=== PATIENT | male | born 1940 | race Caucasian/White ===

== ENCOUNTER → 2017-07-13 | Outpatient (CLI) | payer MEDICARE ==
--- NOTE | 2017-07-13 09:52 | US ---
EXAMINATION TYPE: [place] medicare screen for AAA DATE OF EXAM: 07/13/2017 COMPARISON: CT abdomen 02-01-2015. CLINICAL HISTORY: I70.0 Atherosclerosis of aorta. EXAM MEASUREMENTS: Abdominal Aorta: Proximal: 1.7 x 1.9cm Mid: 1.5 x 1.6cm Distal: 1.7 x 1.9cm Bifurcation: RT: 1.2 x 1.2cm LT: 1.1 x 1.2cm No evidence of AAA at this time. Calcifications noted IMPRESSION: No aneurysmal change to abdominal aorta.
== END | disposition home or self-care (01) ==
LOC: RADUSWWP 09:14
PROVIDERS: ATTEND Family Medicine
DX: I70.0 Atherosclerosis of aorta (principal)
CPT/HCPCS: 93979

== ENCOUNTER → 2017-12-03 | Outpatient (CLI) | payer MEDICARE ==
[2017-12-03 09:31] LABS: Blood Urea Nitrogen 21 mg/dL (9-20)
--- NOTE | 2017-12-03 10:34 | CT ---
EXAMINATION TYPE: CT soft tissue neck w con DATE OF EXAM: 12/03/2017 10:13 AM COMPARISON: None HISTORY: Right sided cheek swelling marked by BB CT DLP: 567 mGycm Automated exposure control for dose reduction was used. CONTRAST: CT scan of the neck is performed following with IV Contrast, patient injected with 100 mL of Isovue 3 00. Axial images are obtained, coronal and sagittal reformatted images are reviewed. FINDINGS: Extensive dental artifact limits assessment of the soft tissues of the neck. Exam is limite d. Airway: No gross abnormality seen. Parotid/submandibular glands: No gross abnormality seen. Carotid/Vascular Structures: Vascular structures demonstrate enhancement with no significant atherosc lerotic changes. Osseous Structures: Multilevel hypertrophic and degenerative disc disease noted with posterior spondy losis. Suspect multilevel foraminal encroachment. Other: There is a 1.5 cm right thyroid nodule. There is a mass overlying the right facial structures measuring 2 x 2 centimeters and has a soft tissue or solid appearance. There is changes of chronic sinusitis. Orbits have a normal appearance. Intracranial structures demonstrate a normal appearance. There is so me asymmetry to the base of the tongue on the left which may be positional should be correlated clini suzy. Focal cords have a normal appearance. Oropharynx and nasopharynx are symmetric. No pathologic adenopathy. Slight arthropathy of the sternoclavicular joints noted. Arthropathy of the AC joints noted. IMPRESSION: 1. Is a solid-appearing mass overlying the subcutaneous tissues of the right facial structures corres ponding the palpable abnormality. Consider tissue diagnosis. 2. Asymmetry of the base of the tongue on the left. Correlate clinically with direct visualization as clinically warranted. 3. There is a 1.5 cm right thyroid nodule.
== END | disposition home or self-care (01) ==
LOC: RADCTMAIN 07:42
PROVIDERS: ATTEND Otolaryngology
DX: E04.1 Nontoxic single thyroid nodule (principal)
CPT/HCPCS: 82565; 84520; 70491; 36415; Q9967

== ENCOUNTER → 2019-03-06 | Outpatient (CLI) | payer MEDICARE ==
--- NOTE | 2019-03-06 09:33 | US ---
EXAMINATION TYPE: US gallbladder DATE OF EXAM: 03/06/2019 COMPARISON: CT 02/01/15 CLINICAL HISTORY: K2080 GALLSTONES. Patient c/o bilateral shoulder pain. History of Melanoma. EXAM MEASUREMENTS: Liver Length: 15.2 cm Gallbladder Wall: 0.1 cm CBD: 0.2 cm Right Kidney: 12.6 x 6.0 x 5.9 cm Pancreas: ? heterogeneous texture. Liver: Multiple liver cysts throughout entire liver. Largest = 7.6 x 6.6 x 6.4 cm Gallbladder: tiny polyps anteriorly and by neck. No stones seen. Evidence for sonographic Templeton's sign: No CBD: wnl Right Kidney: With upper pole cyst =1.6 x 1.3 x 0.8 cm IMPRESSION: 1. Fatty liver multiple hepatic cysts. 2. Suspect small gallbladder polyps.
== END | disposition home or self-care (01) ==
LOC: RADUSWWP 08:49
PROVIDERS: ATTEND Surgery Plastic and Reconstructive Surgery
DX: K76.0 Fatty (change of) liver, not elsewhere classified (principal); K76.89 Other specified diseases of liver; K80.20 Calculus of gallbladder without cholecystitis without obstruction
CPT/HCPCS: 76705

== ENCOUNTER 2019-03-13 11:32 | Day surgery (SDC) | payer MEDICARE ==
[2019-03-11 10:48] VITALS: BMI 22.9
[~2019-03-13 11:32] MED LIST: LACTATED RINGERS 1,000 ML IV SCH; LIDOCAINE 1% 20 ML VIAL (10MG/ML) FOR IV START INTRADERMA PRN
--- NOTE | 2019-03-13 11:58 | P.GSHP ---
History of Present Illness H&P Date: 03/13/19 CHIEF COMPLAINT: Colon screen HISTORY OF PRESENT ILLNESS: The patient is a 78-year-old male who presents for colon screen. Lower endoscopy was offered for further evaluation and management. PAST MEDICAL HISTORY: Please see list. PAST SURGICAL HISTORY: Please see list. MEDICATIONS: Please see list. ALLERGIES: Please see list. SOCIAL HISTORY: No illicit drug use FAMILY HISTORY: No reports of Crohn disease or ulcerative colitis. REVIEW OF ORGAN SYSTEMS: CONSTITUTIONAL: No reports of fevers or chills. PHYSICAL EXAM: VITAL SIGNS: Stable GENERAL: Well-developed pleasant in no acute distress. HEENT: No scleral icterus. Extraocular movements grossly intact. Moist buccal mucosa. NECK: Supple without lymphadenopathy. CHEST: Unlabored respirations. Equal bilateral excursions. CARDIOVASCULAR: Regular rate and rhythm. Distal 2+ pulses. ABDOMEN: Soft, nontender, nondistended. MUSCULOSKELETAL: No clubbing, cyanosis, or edema. ASSESSMENT: 1. Colon screen. PLAN: 1. Recommend proceeding with a lower endoscopy Past Medical History Past Medical History: Cancer, Prostate Disorder, Skin Disorder Additional Past Medical History / Comment(s): Enlarged prostate, episodes of tachycardia, Countyline's Skin Disease, melanoma History of Any Multi-Drug Resistant Organisms: None Reported Past Surgical History: Ear Surgery, Orthopedic Surgery, Prostate Surgery, T onsillectomy Additional Past Surgical History / Comment(s): foot surgery for torn achilles tendon, vasectomy, plastic surgery on left ear,TURP, surgery on a foot for cyst, stella cataracts Past Anesthesia/Blood Transfusion Reactions: No Reported Reaction Additional Past Anesthesia/Blood Transfusion Reaction / Comment(s): Never has had blood transfusion Smoking Status: Former smoker - Past Family History Father Family Medical History: Cancer Additional Family Medical History / Comment(s): colon Mother Family Medical History: Hypertension, Liver Disease Medications and Allergies Home Medications Medication Instructions Recorded Confirmed Type Finasteride [Proscar] 5 mg PO DAILY 06/20/14 03/11/19 History diphenhydrAMINE [Benadryl] 50 mg PO DAILY PRN 03/05/15 03/11/19 History Acetaminophen [Tylenol Extra 1,000 mg PO HS 03/11/19 03/11/19 History Strength] Amlactin Lotion 1 applicate TOPICAL DAILY 03/11/19 03/11/19 History Calcipotriene [Dovonex] 1 applic TOPICAL DIRECTED PRN 03/11/19 03/11/19 History Halobetasol Propionate 1 applic TOPICAL DAILY PRN 03/11/19 03/11/19 History Tolterodine ER [Detrol LA] 4 mg PO 212903/11/19 03/11/19 History Triamcinolone 0.025% Cream 1 applic TOPICAL BID PRN 03/11/19 03/11/19 History [Kenalog 0.025% Cream] Triamcinolone 0.1% Cream [Kenalog 1 applicatio TOPICAL BID PRN 03/11/19 03/11/19 History 0.1% Cream] Allergies Allergy/AdvReac Type Severity Reaction Status Date / Time adhesive AdvReac Itching Verified 03/11/19 10:29 And Skin Irritation
[2019-03-13 12:33] VITALS: RESP 16; TEMP 99.1
[2019-03-13] MEDS ORDERED: PROPOFOL 10 MG/ML 20 ML VIAL IV ONE (14:15)
[2019-03-13] MEDS ORDERED: LIDOCAINE 1% INJ 10MG/ML (20 ML MDV) ONE (14:15)
--- NOTE | 2019-03-13 14:45 | P.PCN ---
Date of Procedure: 03/13/19 Description of Procedure: PREOPERATIVE DIAGNOSIS: Family history of colon cancer Colonoscopy screening. POSTOPERATIVE DIAGNOSIS: Family history of colon cancer Colonoscopy screening. Diverticulosis, scattered. Chronic constipation with poor prep OPERATION: Colonoscopy to the ascending colon SURGEON: Patrizia Morris MD. ANESTHESIA: MAC. INDICATIONS: The patient is a 78-year-old male who presents for colonoscopy screening. Last colonoscopy over 5 years ago.Benefits and risks were described and informed consent was obtained. DESCRIPTION OF PROCEDURE: The patient had undergone Gatorade, MiraLAX and Dulcolax prep. He had been brought into the operating room and laid in the left lateral decubitus position. After adequate intravenous sedation, the rectum was examined with 2% lidocaine jelly. The prostatic fossa was unremarkable. No external hemorrhoids were encountered. The rectal tone was within normal limits. No lesions were palpated in the rectal vault. An Olympus colonoscope was advanced to the ascending colon. The prep was poor limiting views of small polyps. Scattered diverticulosis was encountered. No evidence of focal colitis was found. Retroflexion of the scope demonstrated grade 1 internal hemorrhoids without active bleeding or inflammation. The colon was desufflated. The patient had tolerated the procedure well. Withdrawal time was over 6 minutes. FINDINGS: Aronchick preparation quality scale 4 (1-5) Internal hemorrhoids, grade 1 No external prolapsed hemorrhoids. No arteriovenous malformations. No large adenomatous polyps. No focal colitis. Sigmoid diverticulosis RECOMMENDATIONS: Lower endoscopy in 5 years, 2023 Plan - Discharge Summary New Discharge Prescriptions: No Action Finasteride [Proscar] 5 mg PO DAILY diphenhydrAMINE [Benadryl] 50 mg PO DAILY PRN PRN Reason: Itching Tolterodine ER [Detrol LA] 4 mg PO 2129 Triamcinolone 0.1% Cream [Kenalog 0.1% Cream] 1 applicatio TOPICAL BID PRN PRN Reason: Skin Irritation Triamcinolone 0.025% Cream [Kenalog 0.025% Cream] 1 applic TOPICAL BID PRN PRN Reason: Skin Irritation Calcipotriene [Dovonex] 1 applic TOPICAL DIRECTED PRN PRN Reason: skin breakdown Halobetasol Propionate 1 applic TOPICAL DAILY PRN PRN Reason: Itching Amlactin Lotion 1 applicate TOPICAL DAILY Acetaminophen [Tylenol Extra Strength] 1,000 mg PO HS Discharge Medication List Finasteride [Proscar] 5 mg PO DAILY 06/20/14 [History] diphenhydrAMINE [Benadryl] 50 mg PO DAILY PRN 03/05/15 [History] Acetaminophen [Tylenol Extra Strength] 1,000 mg PO HS 03/11/19 [History] Amlactin Lotion 1 applicate TOPICAL DAILY 03/11/19 [History] Calcipotriene [Dovonex] 1 applic TOPICAL DIRECTED PRN 03/11/19 [History] Halobetasol Propionate 1 applic TOPICAL DAILY PRN 03/11/19 [History] Tolterodine ER [Detrol LA] 4 mg PO 0 03/11/19 [History] Triamcinolone 0.025% Cream [Kenalog 0.025% Cream] 1 applic TOPICAL BID PRN 03/11/19 [History] Triamcinolone 0.1% Cream [Kenalog 0.1% Cream] 1 applicatio TOPICAL BID PRN 03/11/19 [History] Follow up Appointment(s)/Referral(s): Patrizia Morris MD [STAFF PHYSICIAN] - 03/27/19 Patient Instructions/Handouts: Diverticulosis Diet (GEN), Diverticulosis (DC) Activity/Diet/Wound Care/Special Instructions: Recommend Cologaurd or Colonoscopy in 5 years, 2023 Discharge Disposition: HOME SELF-CARE
[2019-03-13 15:01] VITALS: BP 152/83; PULSE 79
== END 2019-03-13 15:14 | disposition home or self-care (01) ==
LOC: ORWHC2ENDO 11:32
PROVIDERS: ATTEND Surgery Plastic and Reconstructive Surgery
DX: Z12.11 Encounter for screening for malignant neoplasm of colon (principal); K57.30 Diverticulosis of large intestine without perforation or abscess without bleeding; K64.0 First degree hemorrhoids; Z80.0 Family history of malignant neoplasm of digestive organs; Z86.010 Personal history of colon polyps; N40.0 Benign prostatic hyperplasia without lower urinary tract symptoms; R00.0 Tachycardia, unspecified; L11.1 Transient acantholytic dermatosis [Grover]; Z98.52 Vasectomy status; Z85.820 Personal history of malignant melanoma of skin; Z98.42 Cataract extraction status, left eye; Z98.41 Cataract extraction status, right eye; Z87.891 Personal history of nicotine dependence; Z82.49 Family history of ischemic heart disease and other diseases of the circulatory system; Z83.79 Family history of other diseases of the digestive system; Z79.52 Long term (current) use of systemic steroids; Z79.899 Other long term (current) drug therapy; Z91.09 Other allergy status, other than to drugs and biological substances
CPT/HCPCS: J2001; J2704; G0105

== ENCOUNTER → 2019-09-26 | Outpatient (CLI) | payer MEDICARE ==
--- NOTE | 2019-09-27 12:04 | XR ---
EXAMINATION TYPE: XR chest 2V DATE OF EXAM: 09/26/2019 COMPARISON: 01/23/2015 INDICATION: Cough TECHNIQUE: Frontal and lateral views of the chest are obtained. FINDINGS: The heart size is normal. The pulmonary vasculature is normal. The lungs are clear. IMPRESSION: 1. No acute pulmonary process.
== END | disposition home or self-care (01) ==
LOC: RADXRMAIN 15:57
PROVIDERS: ATTEND Family Medicine
DX: J45.909 Unspecified asthma, uncomplicated (principal); R05 Cough
CPT/HCPCS: 71046

== ENCOUNTER → 2019-09-30 | Outpatient (CLI) | payer MEDICARE | END | disposition home or self-care (01) | LOC: LABWHC1 10:10 | PROVIDERS: ATTEND Family Medicine | DX: Z20.9 Contact with and (suspected) exposure to unspecified communicable disease (principal) ==

== ENCOUNTER 2019-10-21 13:55 | Inpatient (IN) | payer MEDICARE ==
--- NOTE | 2019-10-21 14:31 | ED ---
Fever HPI - General Source: patient, family, RN notes reviewed Mode of arrival: wheelchair Limitations: no limitations - History of Present Illness MD Complaint: fever, other <Kenney Nicholas - Last Filed: 10/21/19 14:52> <James Caputo - Last Filed: 10/21/19 17:14> - General Chief Complaint: Fever Stated Complaint: Dizzy,Fever,Cough Time Seen by Provider: 10/21/19 14:09 - History of Present Illness Initial Comments: This is a 79-year-old male with a history of malignant melanoma the face who is currently undergoing immunotherapy treatment for this who presents from his doctor's office with complaints of 6 weeks of persistent cough any fever 101.7 this morning. He's had persistent cough for 6 weeks he is on chemotherapy for melanoma but could not get his chemo yesterday because of a fever. He denies any coughing up phlegm he states she's had almost constant rhinorrhea sometimes is years ago ingested he is hard of hearing and does wear hearing is. No dysuria no hematuria. No overt chest pain no nausea no vomiting. He apparently was seen by his doctor this morning sent here for further evaluation. (Kenney Nicholas) - Related Data Home Medications Medication Instructions Recorded Confirmed Finasteride [Proscar] 5 mg PO DAILY 06/20/14 03/13/19 diphenhydrAMINE [Benadryl] 50 mg PO DAILY PRN 03/05/15 03/13/19 Acetaminophen [Tylenol Extra 1,000 mg PO HS 03/11/19 03/13/19 Strength] Amlactin Lotion 1 applicate TOPICAL DAILY 03/11/19 03/13/19 Calcipotriene [Dovonex] 1 applic TOPICAL DIRECTED PRN 03/11/19 03/13/19 Halobetasol Propionate [Ultravate] 1 applic TOPICAL DAILY PRN 03/11/19 03/13/19 Tolterodine ER [Detrol LA] 4 mg PO 212903/11/19 03/13/19 Triamcinolone 0.025% Cream 1 applic TOPICAL BID PRN 03/11/19 03/13/19 [Kenalog 0.025% Cream] Triamcinolone 0.1% Cream [Kenalog 1 applicatio TOPICAL BID PRN 03/11/19 03/13/19 0.1% Cream] Allergies Allergy/AdvReac Type Severity Reaction Status Date / Time adhesive AdvReac Itching Verified 10/21/19 14:08 And Skin Irritation Review of Systems ROS Other: All systems not noted in ROS Statement are negative. <Kenney Nicholas - Last Filed: 10/21/19 14:52> ROS Other: All systems not noted in ROS Statement are negative. <HarshalJames D - Last Filed: 10/21/19 17:14> ROS Statement: Those systems with pertinent positive or pertinent negative responses have been documented in the HPI. Past Medical History Past Medical History: Cancer, Prostate Disorder, Skin Disorder Additional Past Medical History / Comment(s): Enlarged prostate,tachycardia,Joaquin's Skin Disease History of Any Multi-Drug Resistant Organisms: None Reported Past Surgical History: Ear Surgery, Orthopedic Surgery Additional Past Surgical History / Comment(s): foot sx r/t torn achilles,vasectomy Past Anesthesia/Blood Transfusion Reactions: No Reported Reaction Additional Past Anesthesia/Blood Transfusion Reaction / Comment(s): Never has had blood transfusion Past Psychological History: No Psychological Hx Reported Smoking Status: Never smoker Past Alcohol Use History: Rare Past Drug Use History: None Reported - Past Family History Father Family Medical History: Cancer Additional Family Medical History / Comment(s): colon Mother Family Medical History: Hypertension, Liver Disease <Kenney Nicholas - Last Filed: 10/21/19 14:52> General Exam Limitations: no limitations General appearance: alert, in no apparent distress Head exam: Present: atraumatic, normocephalic, normal inspection Eye exam: Present: normal appearance, PERRL, EOMI. Absent: scleral icterus, conjunctival injection, periorbital swelling ENT exam: Present: mucous membranes dry, other (Boggy nasal mucosa and some dullness to the left TM) Neck exam: Present: normal inspection. Absent: tenderness, meningismus, lymp hadenopathy Respiratory exam: Present: decreased breath sounds, other (Left lower lobe crepitus). Absent: respiratory distress, wheezes, rales, stridor Cardiovascular Exam: Present: regular rate, normal rhythm, normal heart sounds. Absent: systolic murmur, diastolic murmur, rubs, gallop, clicks GI/Abdominal exam: Present: soft, normal bowel sounds. Absent: distended, tenderness, guarding, rebound, rigid Extremities exam: Present: normal inspection, full ROM, normal capillary refill. Absent: tenderness, pedal edema, joint swelling, calf tenderness Back exam: Present: normal inspection Neurological exam: Present: alert, oriented X3, CN II-XII intact Psychiatric exam: Present: normal affect, normal mood Skin exam: Present: warm, dry, intact, normal color. Absent: rash <Kenney Nicholas - Last Filed: 10/21/19 14:52> - General Exam Comments Initial Comments: This is a well-developed asthenic appearing male who is awake alert oriented 3 (Kenney Nicholas) Course <Kenney Nicholas - Last Filed: 10/21/19 14:52> Vital Signs 10/21/19 14:02 Temperature 99.7 F H Pulse Rate 88 Respiratory 20 Rate Blood Pressure 95/52 O2 Sat by Pulse 95 Oximetry - Reevaluation(s) Reevaluation #1: 10/21/19 14:52 The patient's care will be endorsed to Dr. Caputo at shift change. ( Kenney Nicholas) Medical Decision Making - EKG Data -: EKG Interpreted by Me EKG shows normal: sinus rhythm (Sinus rhythm rate 89. Interval 150 to QRS duration 154 daily since QTC 42/49) with block pattern) <Kenney Nicholas - Last Filed: 10/21/19 14:52> - Lab Data Result diagrams: 10/21/19 15:00 10/21/19 15:00 <James Caputo - Last Filed: 10/21/19 17:14> - Medical Decision Making Patient is signed out to me by previous shift physician Dr. Nicholas. Briefly, patient is a 79-year-old male with past medical history melanoma, prostate disease. He reports that he is on some sort of clinical trial immunotherapy medication. Patient presented to the emergency Department with fever cough and dizziness. Patient currently undergoing chemotherapy. Vital signs upon arrival showed temperature 99.7. He does have blood pressure 95/52. Parents was to follow-up with pending labs and imaging studies. CBC is unremarkable. Coag panel is negative. D-dimer is negative compared to age adjusted level. Hyponatremia 131. He does have a troponin 0.066. Urinalysis is positive for 1+ ketones and 7 white blood cells. Chest x-ray shows no acute processes. At this point there is no obvious source of fever. Clinical presentation consistent with systemic inflammatory response syndrome. Patient treated with broad- spectrum antibiotics. Given patient's comorbidities patient benefit from inpatient admission for medical monitoring. Case was discussed with Dr. Dias who is willing to accept patients care on behalf of [facility] hospitalist group. Patient be admitted with consultation to infectious disease. (James Caputo) - Lab Data Lab Results 10/21/19 10/21/19 10/21/19 Range/Units 15:00 15:00 15:00 WBC 10.6 (3.8-10.6) k/uL RBC 4.25 L (4.30-5.90) m/uL Hgb 13.5 (13.0-17.5) gm/dL Hct 41.6 (39.0-53.0) % MCV 98.0 (80.0-100.0) fL MCH 31.7 (25.0-35.0) pg MCHC 32.4 (31.0-37.0) g/dL RDW 12.1 (11.5-15.5) % Plt Count 204 (150-450) k/uL Neutrophils % 90 % Lymphocytes % 4 % Monocytes % 3 % Eosinophils % 1 % Basophils % 0 % Neutrophils # 9.6 H (1.3-7.7) k/uL Lymphocytes # 0.4 L (1.0-4.8) k/uL Monocytes # 0.4 (0-1.0) k/uL Eosinophils # 0.1 (0-0.7) k/uL Basophils # 0.0 (0-0.2) k/uL PT 11.8 (9.0-12.0) sec INR 1.2 H (<1.2) APTT 27.1 (22.0-30.0) sec D-Dimer 0.69 H (<0.60) mg/L FEU Sodium 131 L (137-145) mmol/L Potassium 4.2 (3.5-5.1) mmol/L Chloride 98 (98-107) mmol/L Carbon Dioxide 26 (22-30) mmol/L Anion Gap 7 mmol/L BUN 21 H (9-20) mg/dL Creatinine 0.69 (0.66-1.25) mg/dL Est GFR (CKD-EPI)AfAm >90 (>60 ml/min/1.73 sqM) Est GFR (CKD-EPI)NonAf >90 (>60 ml/min/1.73 sqM) Glucose 161 H (74-99) mg/dL Plasma Lactic Acid Otoniel (0.7-2.0) mmol/L Calcium 8.7 (8.4-10.2) mg/dL Magnesium 1.9 (1.6-2.3) mg/dL Total Bilirubin 0.5 (0.2-1.3) mg/dL AST 22 (17-59) U/L ALT 16 (4-49) U/L Alkaline Phosphatase 72 (38-126) U/L Creatine Kinase 36 L (55-170) U/L Troponin I (0.000-0.034) ng/mL NT-Pro-B Natriuret Pep pg/mL Total Protein 6.2 L (6.3-8.2) g/dL Albumin 3.3 L (3.5-5.0) g/dL Urine Color Urine Appearance (Clear) Urine pH (5.0-8.0) Ur Specific [place] (1.001-1.035) Urine Protein (Negative) Urine Glucose (UA) (Negative) Urine Ketones (Negative) Urine Blood (Negative) Urine Nitrite (Negative) Urine Bilirubin (Negative) Urine Urobilinogen (<2.0) mg/dL Ur Leukocyte Esterase (Negative) Urine RBC (0-5) /hpf Urine WBC (0-5) /hpf Ur Squamous Epith Cells (0-4) /hpf Hyaline Casts (0-2) /lpf Urine Mucus (None) /hpf 10/21/19 10/21/19 10/21/19 Range/Units 15:00 15:00 15:00 WBC (3.8-10.6) k/uL RBC (4.30-5.90) m/uL Hgb (13.0-17.5) gm/dL Hct (39.0-53.0) % MCV (80.0-100.0) fL MCH (25.0-35.0) pg MCHC (31.0-37.0) g/dL RDW (11.5-15.5) % Plt Count (150-450) k/uL Neutrophils % % Lymphocytes % % Monocytes % % Eosinophils % % Basophils % % Neutrophils # (1.3-7.7) k/uL Lymphocytes # (1.0-4.8) k/uL Monocytes # (0-1.0) k/uL Eosinophils # (0-0.7) k/uL Basophils # (0-0.2) k/uL PT (9.0-12.0) sec INR (<1.2) APTT (22.0-30.0) sec D-Dimer (<0.60) mg/L FEU Sodium (137-145) mmol/L Potassium (3.5-5.1) mmol/L Chloride (98-107) mmol/L Carbon Dioxide (22-30) mmol/L Anion Gap mmol/L BUN (9-20) mg/dL Creatinine (0.66-1.25) mg/dL Est GFR (CKD-EPI)AfAm (>60 ml/min/1.73 sqM) Est GFR (CKD-EPI)NonAf (>60 ml/min/1.73 sqM) Glucose (74-99) mg/dL Plasma Lactic Acid Otoniel 1.1 (0.7-2.0) mmol/L Calcium (8.4-10.2) mg/dL Magnesium (1.6-2.3) mg/dL Total Bilirubin (0.2-1.3) mg/dL AST (17-59) U/L ALT (4-49) U/L Alkaline Phosphatase (38-126) U/L Creatine Kinase (55-170) U/L Troponin I 0.066 H* (0.000-0.034) ng/mL NT-Pro-B Natriuret Pep 2660 pg/mL Total Protein (6.3-8.2) g/dL Albumin (3.5-5.0) g/dL Urine Color Urine Appearance (Clear) Urine pH (5.0-8.0) Ur Specific [place] (1.001-1.035) Urine Protein (Negative) Urine Glucose (UA) (Negative) Urine Ketones (Negative) Urine Blood (Negative) Urine Nitrite (Negative) Urine Bilirubin (Negative) Urine Urobilinogen (<2.0) mg/dL Ur Leukocyte Esterase (Negative) Urine RBC (0-5) /hpf Urine WBC (0-5) /hpf Ur Squamous Epith Cells (0-4) /hpf Hyaline Casts (0-2) /lpf Urine Mucus (None) /hpf 10/21/19 Range/Units 15:35 WBC (3.8-10.6) k/uL RBC (4.30-5.90) m/uL Hgb (13.0-17.5) gm/dL Hct (39.0-53.0) % MCV (80.0-100.0) fL MCH (25.0-35.0) pg MCHC (31.0-37.0) g/dL RDW (11.5-15.5) % Plt Count (150-450) k/uL Neutrophils % % Lymphocytes % % Monocytes % % Eosinophils % % Basophils % % Neutrophils # (1.3-7.7) k/uL Lymphocytes # (1.0-4.8) k/uL Monocytes # (0-1.0) k/uL Eosinophils # (0-0.7) k/uL Basophils # (0-0.2) k/uL PT (9.0-12.0) sec INR (<1.2) APTT (22.0-30.0) sec D-Dimer (<0.60) mg/L FEU Sodium (137-145) mmol/L Potassium (3.5-5.1) mmol/L Chloride (98-107) mmol/L Carbon Dioxide (22-30) mmol/L Anion Gap mmol/L BUN (9-20) mg/dL Creatinine (0.66-1.25) mg/dL Est GFR (CKD-EPI)AfAm (>60 ml/min/1.73 sqM) Est GFR (CKD-EPI)NonAf (>60 ml/min/1.73 sqM) Glucose (74-99) mg/dL Plasma Lactic Acid Otoniel (0.7-2.0) mmol/L Calcium (8.4-10.2) mg/dL Magnesium (1.6-2.3) mg/dL Total Bilirubin (0.2-1.3) mg/dL AST (17-59) U/L ALT (4-49) U/L Alkaline Phosphatase (38-126) U/L Creatine Kinase (55-170) U/L Troponin I (0.000-0.034) ng/mL NT-Pro-B Natriuret Pep pg/mL Total Protein (6.3-8.2) g/dL Albumin (3.5-5.0) g/dL Urine Color Yellow Urine Appearance Clear (Clear) Urine pH 6.0 (5.0-8.0) Ur Specific [place] 1.021 (1.001-1.035) Urine Protein Trace H (Negative) Urine Glucose (UA) Negative (Negative) Urine Ketones 1+ H (Negative) Urine Blood Small H (Negative) Urine Nitrite Negative (Negative) Urine Bilirubin Negative (Negative) Urine Urobilinogen <2.0 (<2.0) mg/dL Ur Leukocyte Esterase Negative (Negative) Urine RBC 2 (0-5) /hpf Urine WBC 7 H (0-5) /hpf Ur Squamous Epith Cells <1 (0-4) /hpf Hyaline Casts 5 H (0-2) /lpf Urine Mucus Many H (None) /hpf Disposition <Kenney Nicholas - Last Filed: 10/21/19 14:52> Decision Time: 17:14 <James Caputo - Last Filed: 10/21/19 17:14> Clinical Impression: SIRS (systemic inflammatory response syndrome) Disposition: ADMITTED IP TO THIS HOSP Condition: Fair Referrals: Sohan Jorge MD [Primary Care Provider] - 1-2 days
[2019-10-21 15:12] LABS: Basophils % (A) 0 %; Eosinophils # (A) 0.1 k/uL (0-0.7); Eosinophils % (A) 1 %; HCT 41.6 % (39.0-53.0); HGB 13.5 gm/dL (13.0-17.5); Lymphocytes # (A) 0.4 k/uL (1.0-4.8); Lymphocytes % (A) 4 %; MCH 31.7 pg (25.0-35.0); MCHC 32.4 g/dL (31.0-37.0); Mean Platelet Volume 7.8; Monocytes # (A) 0.4 k/uL (0-1.0); Monocytes % (A) 3 %; Neutrophils # (A) 9.6 k/uL (1.3-7.7); Neutrophils % (A) 90 %; Platelet Count 204 k/uL (150-450); RBC 4.25 m/uL (4.30-5.90); RDW 12.1 % (11.5-15.5); WBC 10.6 k/uL (3.8-10.6)
[2019-10-21 15:24] LABS: ALT 16 U/L (4-49); AST 22 U/L (17-59); African American GFR (CKD) >90 (>60 ml/min/1.73 sqM); Albumin 3.3 g/dL (3.5-5.0); Alkaline Phosphatase 72 U/L (38-126); Anion Gap 7 mmol/L; Blood Urea Nitrogen 21 mg/dL (9-20); Calcium 8.7 mg/dL (8.4-10.2); Carbon Dioxide 26 mmol/L (22-30); Chloride 98 mmol/L (98-107); Creatine Kinase 36 U/L (55-170); Glucose 161 mg/dL (74-99); Magnesium 1.9 mg/dL (1.6-2.3); Non-African American GFR(CKD) >90 (>60 ml/min/1.73 sqM); Potassium 4.2 mmol/L (3.5-5.1); Sodium 131 mmol/L (137-145); Total Bilirubin 0.5 mg/dL (0.2-1.3); Total Protein 6.2 g/dL (6.3-8.2)
--- NOTE | 2019-10-21 15:30 | XR ---
EXAMINATION TYPE: XR chest 2V DATE OF EXAM: 10/21/2019 COMPARISON: 09/26/19 HISTORY: Shortness of breath TECHNIQUE: Frontal and lateral views of the chest are obtained. FINDINGS: Scattered senescent parenchymal changes noted. Hyperinflation compatible with COPD. No evidence for infiltrate. No evidence for atelectasis. Heart size is stable. Mediastinal structures are stable and grossly unremarkable. No evidence for hilar prominence. Degenerative changes dorsal spine. IMPRESSION: 1. No evidence for acute pulmonary disease.
[2019-10-21 15:35] LABS: INR 1.2 (<1.2); Partial Thromboplastin Time 27.1 sec (22.0-30.0); Prothrombin Time 11.8 sec (9.0-12.0)
[2019-10-21 15:47] LABS: D-Dimer 0.69 mg/L FEU (<0.60)
[2019-10-21 16:02] LABS: Appearance,Urine Clear (Clear); Bilirubin,Urine Negative (Negative); Blood,Urine Small (Negative); Color,Urine Yellow; Glucose,Urine (UA) Negative (Negative); Hyaline Casts,Urine 5 /lpf (0-2); Ketones,Urine 1+ (Negative); Leukocyte Esterase,Urine Negative (Negative); Mucus,Urine Many /hpf; Nitrite,Urine Negative (Negative); Protein,Urine Trace (Negative); RBC,Urine 2 /hpf (0-5); Specific Gravity,Urine 1.021 (1.001-1.035); Squamous Epithelial Cell,Urine <1 /hpf (0-4); Urobilinogen,Urine <2.0 mg/dL (<2.0); WBC,Urine 7 /hpf (0-5)
[2019-10-21] MEDS ORDERED: VANCOMYCIN IV PER PHARMACY 1 EACH MISC MISCELLANE PRN (16:21)
[2019-10-21] MEDS ORDERED: CEFEPIME 2 GM in SODIUM CHLORIDE 0.9% 100 ML IVPB STA (16:21)
[2019-10-21] MEDS ORDERED: VANCOMYCIN 1,250 MG in SODIUM CHLORIDE 0.9% 250 ML IVPB STA (16:25)
[2019-10-21] MEDS ORDERED: NALOXONE 0.4 MG/ML 1 ML VIAL IV PRN (17:10)
[2019-10-21] MEDS ORDERED: ACETAMINOPHEN TAB 325 MG TAB PO PRN (17:10)
[2019-10-21] MEDS ORDERED: TRIAMCINOLONE 0.1% CREAM 80 GM TUBE TOPICAL PRN ×2 (18:13)
[2019-10-21] MEDS ORDERED: CLOBETASOL PROP 0.05% OINT 15GM TOPICAL PRN (18:13)
[2019-10-21] MEDS ORDERED: diphenhydrAMINE 50 MG CAP PO PRN (18:13)
[2019-10-21] MEDS ORDERED: CALCIPOTRIENE TOPICAL PRN (18:13)
[2019-10-21] MEDS: BENZONATATE 100 MG CAP PO PRN (19:20)
[2019-10-21] MEDS: METOPROLOL TARTRATE 25 MG TAB PO SCH (22:02)
[2019-10-21] MEDS: OXYBUTYNIN 10 MG TAB.ER.24 PO SCH (22:02)
[2019-10-21] MEDS: SODIUM CHLORIDE 0.9% 1,000 ML IV SCH (22:03)
[2019-10-22] MEDS ORDERED: ALBUTEROL NEBULIZED 2.5 MG/3 ML INHALATION PRN (00:17)
--- NOTE | 2019-10-22 00:21 | P.HPIM ---
History of Present Illness H&P Date: 10/21/19 Chief Complaint: Fever Patient is a 79-year-old male with a known history of skin cancer/melanoma currently on clinical study drugs for the past 2 years, BPH, Glovers skin disease came to ER with complaints of persistent cough for the past 6 weeks. Cough with mainly clear sputum. Patient was seen by his PCP and Dr. Newby urologist and was given prednisone course as well as antibiotics in the form of azithromycin. Patient is also seen by his oncologist and since the patient is having cough mainly in the nighttime patient was also prescribed PPI for possible reflux. His symptoms never went away and last night he was having body aches and congestion and also became febrile. Patient had low-grade fever last night but this morning his fever was 101.7 as per his at bedside. Patient presented to ER with worsening symptoms.Patient denied any leg swelling. Laboratory data showed WBC 10.6, hemoglobin 13.4 and platelets 204 D-dimer 0.69 absolute lymphocyte count 0.4 Sodium 131, potassium 4.2, chloride 98 and BUN 21 creatinine 0.69 Troponin 0 0.066 and 0.037 proBNP 2660 UA negative for infection Vitals blood pressure 95/52 pulse 88 respiration 20 and temperature 99.7 and saturating at 95% on room air on admission. Chest x-ray showed no acute pulmonary disease. EKG showed normal sinus rhythm Past Medical History Past Medical History: Cancer, Prostate Disorder, Skin Disorder Additional Past Medical History / Comment(s): Enlarged prostate,tachy cardia,Joaquin's Skin Disease History of Any Multi-Drug Resistant Organisms: None Reported Past Surgical History: Ear Surgery, Orthopedic Surgery Additional Past Surgical History / Comment(s): foot sx r/t torn achilles,vasect brett Past Anesthesia/Blood Transfusion Reactions: No Reported Reaction Additional Past Anesthesia/Blood Transfusion Reaction / Comment(s): Never has escobar d blood transfusion Past Psychological History: No Psychological Hx Reported Smoking Status: Never smoker Past Alcohol Use History: Rare Past Drug Use History: None Reported - Past Family History Father Family Medical History: Cancer Additional Family Medical History / Comment(s): colon Mother Family Medical History: Hypertension, Liver Disease Medications and Allergies Home Medications Medication Instructions Recorded Confirmed Type Finasteride [Proscar] 5 mg PO DAILY 06/20/14 10/21/19 History diphenhydrAMINE [Benadryl] 50 mg PO DAILY PRN 03/05/15 10/21/19 History Acetaminophen [Tylenol Extra 1,000 mg PO Q8H PRN 03/11/19 10/21/19 History Strength] Amlactin Lotion 1 applicate TOPICAL DAILY 03/11/19 10/21/19 History Calcipotriene [Dovonex] 1 applic TOPICAL BID PRN 03/11/19 10/21/19 History Halobetasol Propionate [Ultravate] 1 applic TOPICAL BID PRN 03/11/19 10/21/19 History Tolterodine ER [Detrol LA] 4 mg PO HS 03/11/19 10/21/19 History Triamcinolone 0.025% Cream 1 applic TOPICAL BID PRN 03/11/19 10/21/19 History [Kenalog 0.025% Cream] Triamcinolone 0.1% Cream [Kenalog 1 applicatio TOPICAL BID PRN 03/11/19 10/21/19 History 0.1% Cream] Albuterol Inhaler [Ventolin Hfa 1 puff INHALATION RT-Q6H PRN 10/21/19 10/21/19 History Inhaler] Dextromethorphan Polistirex 60 mg PO Q12HR PRN 10/21/19 10/21/19 History [Delsym] Lidocaine-Hc 3-0.5% 1 applic TOPICAL DAILY PRN 10/21/19 10/21/19 History Loratadine [Claritin] 10 mg PO DAILY PRN 10/21/19 10/21/19 History Tretinoin [Tretinoin 0.1%] 1 applic TOPICAL BID 10/21/19 10/21/19 History Allergies Allergy/AdvReac Type Severity Reaction Status Date / Time adhesive AdvReac Itching Verified 10/21/19 18:27 And Skin Irritation Physical Exam Vitals: Vital Signs Temp Pulse Resp BP Pulse Ox 10/21/19 19:24 98.3 F 85 17 116/59 97 10/21/19 17:42 98 F 81 19 123/62 97 10/21/19 14:02 99.7 F H 88 20 95/52 95 Intake and Output 10/21/19 10/21/19 10/21/19 06:59 14:59 22:59 Other: Weight 65.771 kg Results CBC & Chem 7: 10/21/19 15:00 10/21/19 15:00 Labs: Abnormal Lab Results - Last 24 Hours (Table) 10/21/19 10/21/19 10/21/19 Range/Units 15:00 15:00 15:00 RBC 4.25 L (4.30-5.90) m/uL Neutrophils # 9.6 H (1.3-7.7) k/uL Lymphocytes # 0.4 L (1.0-4.8) k/uL INR 1.2 H (<1.2) D-Dimer 0.69 H (<0.60) mg/L FEU Sodium 131 L (137-145) mmol/L BUN 21 H (9-20) mg/dL Glucose 161 H (74-99) mg/dL Creatine Kinase 36 L (55-170) U/L Troponin I (0.000-0.034) ng/mL Total Protein 6.2 L (6.3-8.2) g/dL Albumin 3.3 L (3.5-5.0) g/dL Urine Protein (Negative) Urine Ketones (Negative) Urine Blood (Negative) Urine WBC (0-5) /hpf Hyaline Casts (0-2) /lpf Urine Mucus (None) /hpf 10/21/19 10/21/19 Range/Units 15:00 15:35 RBC (4.30-5.90) m/uL Neutrophils # (1.3-7.7) k/uL Lymphocytes # (1.0-4.8) k/uL INR (<1.2) D-Dimer (<0.60) mg/L FEU Sodium (137-145) mmol/L BUN (9-20) mg/dL Glucose (74-99) mg/dL Creatine Kinase (55-170) U/L Troponin I 0.066 H* (0.000-0.034) ng/mL Total Protein (6.3-8.2) g/dL Albumin (3.5-5.0) g/dL Urine Protein Trace H (Negative) Urine Ketones 1+ H (Negative) Urine Blood Small H (Negative) Urine WBC 7 H (0-5) /hpf Hyaline Casts 5 H (0-2) /lpf Urine Mucus Many H (None) /hpf Thrombosis Risk Factor Assmnt - DVT/VTE Prophylaxis DVT/VTE Prophylaxis: Pharmacologic Prophylaxis ordered Assessment and Plan Assessment: New onset fever along with chronic cough x 6wk. Definitive etiology unknown at this time. Elevated troponin level likely due to demand mismatch Elevated BNP level at 2660 without other evidence of heart failure Mild hypovolemic hyponatremia Melanoma currently being treated with study drugs. BPH DVT prophylaxis Plan: Patient was given a dose of vancomycin and cefepime in the ER. Continue symptomatic management for cough and breathing treatments as needed. Follow-up culture report and ID will be consulted. Troponin level is trending down. Continue with telemetry monitoring and further recommendations based on the clinical course. Time with Patient: Greater than 30
[2019-10-22] MEDS ORDERED: VANCOMYCIN 1,250 MG in SODIUM CHLORIDE 0.9% 250 ML IVPB SCH (06:00)
[2019-10-22 08:00] LABS: Basophils % (A) 0 %; Eosinophils # (A) 0.1 k/uL (0-0.7); Eosinophils % (A) 1 %; HCT 38.2 % (39.0-53.0); HGB 12.3 gm/dL (13.0-17.5); Lymphocytes # (A) 0.9 k/uL (1.0-4.8); Lymphocytes % (A) 12 %; MCH 31.7 pg (25.0-35.0); MCHC 32.2 g/dL (31.0-37.0); MCV 98.7 fL (80.0-100.0); Mean Platelet Volume 8.4; Monocytes # (A) 0.6 k/uL (0-1.0); Monocytes % (A) 7 %; Neutrophils # (A) 5.9 k/uL (1.3-7.7); Neutrophils % (A) 76 %; Platelet Count 177 k/uL (150-450); RBC 3.87 m/uL (4.30-5.90); RDW 12.3 % (11.5-15.5); WBC 7.7 k/uL (3.8-10.6)
[2019-10-22 08:20] LABS: African American GFR (CKD) >90 (>60 ml/min/1.73 sqM); Anion Gap 4 mmol/L; Blood Urea Nitrogen 23 mg/dL (9-20); Calcium 8.3 mg/dL (8.4-10.2); Carbon Dioxide 26 mmol/L (22-30); Chloride 103 mmol/L (98-107); Glucose 112 mg/dL (74-99); Non-African American GFR(CKD) >90 (>60 ml/min/1.73 sqM); Sodium 133 mmol/L (137-145)
[2019-10-22 08:24] LABS: Potassium 4.6 mmol/L (3.5-5.1)
[2019-10-22] MEDS: METOPROLOL TARTRATE 25 MG TAB PO SCH ×3 (08:52→20:55)
[2019-10-22] MEDS: BENZONATATE 100 MG CAP PO PRN ×3 (08:52→23:05)
[2019-10-22] MEDS: FINASTERIDE 5 MG TAB PO SCH (08:52)
[2019-10-22] MEDS ORDERED: MAGNESIUM SULFATE-D5W PMX 1 GM in DEXTROSE/WATER 1 100ML.BAG IVPB ONE (09:02)
[2019-10-22] MEDS: AMMONIUM LACTATE 12% CREAM 140 GM TUBE TOPICAL SCH (09:18)
[2019-10-22] MEDS: SODIUM CHLORIDE 0.9% 1,000 ML IV SCH ×3 (09:26→18:09)
--- NOTE | 2019-10-22 11:00 | ECHOF ---
Referral Reason:chf MEASUREMENTS -------- HEIGHT: 177.8 cm WEIGHT: 65.8 kg BP: 115/60 RVIDd: 2.2 cm (< 3.3) IVSd: 1.2 cm (0.6 - 1.1) LVIDd: 4.1 cm (3.9 - 5.3) LVPWd: 1.3 cm (0.6 - 1.1) IVSs: 1.8 cm LVIDs: 2.6 cm LVPWs: 1.8 cm Ao Diam: 3.0 cm (2.0 - 3.7) AV Cusp: 2.2 cm (1.5 - 2.6) LA Diam: 1.6 cm (2.7 - 3.8) MV EXCURSION: 23.601 mm (> 18.000) MV EF SLOPE: 101 mm/s (70 - 150) EPSS: 0.8 cm MV E Rakesh: 0.43 m/s MV DecT: 243 ms MV A Rakesh: 0.66 m/s MV E/A Ratio: 0.65 RAP: 5.00 mmHg RVSP: 13.69 mmHg FINDINGS -------- Sinus rhythm with extra systolic beats. This was a technically good study. The left ventricular size is normal. There is mild concentric left ventricular hypertrophy. Overa ll left ventricular systolic function is normal with, an EF between 55 - 60 %. The right ventricle is normal in size. The left atrial size is normal. The right atrial size is normal. Interatrial and interventricular septum intact. Aortic valve is trileaflet and is mildly thickened. The mitral valve is normal. The mitral valve leaflets are mildly thickened. Mild mitral regurgita tion is present. The tricuspid valve appears structurally normal. Trace tricuspid regurgitation present. Right reyes tricular systolic pressure is normal at < 35 mmHg. There is no pulmonic regurgitation present. The aortic root size is normal. Normal inferior vena cava with normal inspiratory collapse consistent with estimated right atrial pre ssure of 5 mmHg. There is no pericardial effusion. CONCLUSIONS -------- 1. There is mild concentric left ventricular hypertrophy. 2. Overall left ventricular systolic function is normal with, an EF between 55 - 60 %. 3. Aortic valve is trileaflet and is mildly thickened. 4. The mitral valve leaflets are mildly thickened. 5. Mild mitral regurgitation is present. 6. Trace tricuspid regurgitation present. PRIVATE CLIENT ADVISOR: Sharyn Keller RDCS
--- NOTE | 2019-10-22 11:28 | P.CRDCN ---
History of Present Illness History of present illness: HISTORY OF PRESENTING ILLNESS This is a pleasant 79-year-old male past medical history significant for melanoma currently undergoing immunotherapy clinical trial treatment at [facility] for the last 2 years. He denies prior history of coronary artery disease and does not follow with a hydrodynamics professor for any reason. We have been asked to see in consultation for ventricular tachycardia. He presented to the hospital with symptoms of fever and cough. He states he has been coughing for the previous 6 weeks. It is a dry cough with no significant sputum production. He had a temperature of 101.7F 2 days ago and could not undergo his scheduled immunotherapy. He has been started on antibiotics per primary care team and being treated symptomatically. Last night on telemetry the staff noted a rhythm change. EKG on admission revealed a right bundle branch block with sinus mechanism heart rate of 89. On the monitor he is having short beats of tachycardia. These bursts are the same morphology as his normal beats. NOT ventricular tachycardia. Chest xray negative for an acute cardiopulmonary process. Laboratory data reviewed, WBC 7.7, hgb 12.3, plt 177, d-dimer 0.69, sodium 133, potassium 4.6, creatinine 0.6, magnesium 1.9, troponin 0.066, 0.037, 0.036, NTproBNP 2660. He takes no daily cardiac medications. He denies symptoms of chest pain, shortness of breath, dizziness or palpitations. He was asymptomatic with his tachycardia yesterday. Echocardiogram obtained reveals preserved LV systolic function with ejection fraction 55-60% with mild mitral regurgitation noted. He underwent a stress echocardiogram in 2014 that was negative for stress-induced ischemia. REVIEW OF SYSTEMS At the time of my exam: CONSTITUTIONAL: Denies fever or chills. CARDIOVASCULAR: Denies chest pain, shortness of breath, orthopnea, PND or palpitations. RESPIRATORY: Complains of cough. GASTROINTESTINAL: Denies abdominal pain, diarrhea, constipation, nausea or vomiting. MUSCULOSKELETAL: Denies myalgias. NEUROLOGIC: Denies numbness, tingling or weakness. ENDOCRINE: Denies fatigue, weight change, polydipsia or polyurina. GENITOURINARY: Denies burning, hematuria or urgency with micturation. HEMATOLOGIC: Denies history of anemia or bleeding. PHYSICAL EXAMINATION Blood pressure 98/56 heart rate 77 afebrile and maintaining oxygen saturation on room air. CONSTITUTIONAL: No apparent distress. Frail appearance. HEENT: Head is normocephalic. Pupils are equal, round. Sclerae anicteric. Mucous membranes of the mouth are moist. No JVD. No carotid bruit. CHEST EXAMINATION: Lungs are clear to auscultation. No chest wall tenderness is noted on palpation or with deep breathing. HEART EXAMINATION: Regular rate and rhythm. S1, S2 heard. No murmurs, gallops or rub. ABDOMEN: Soft, nontender. Positive bowel sounds. EXTREMITIES: 2+ peripheral pulses, no lower extremity edema and no calf tenderness. NEUROLOGIC EXAMINATION: Patient is awake, alert and oriented x3. ASSESSMENT Sinus tachycardia with a right bundle branch block likely secondary to underlying infection/sepsis Melanoma currently undergoing clinical trial with immunotherapy Febrile illness PLAN Metoprolol was initiated last night. Continue current dose. Arrhythmia noted is a sinus tachycardia with a right bundle branch block. NO ventricular tachycardia. Replace magnesium with 1 g today. Ongoing medical management, no further cardiac work-up required at this time. Thank you kindly for this consultation. Nurse Practitioner note has been reviewed, I agree with a documented findings and plan of care. Patient was seen and examined. Past Medical History Past Medical History: Cancer, Prostate Disorder, Skin Disorder Additional Past Medical History / Comment(s): Enlarged prostate,tachycardia,Joaquin's Skin Disease History of Any Multi-Drug Resistant Organisms: None Reported Past Surgical History: Ear Surgery, Orthopedic Surgery Additional Past Surgical History / Comment(s): foot sx r/t torn achilles,vasectomy Past Anesthesia/Blood Transfusion Reactions: No Reported Reaction Additional Past Anesthesia/Blood Transfusion Reaction / Comment(s): Never has had blood transfusion Past Psychological History: No Psychological Hx Reported Smoking Status: Never smoker Past Alcohol Use History: Rare Past Drug Use History: None Reported - Past Family History Father Family Medical History: Cancer Additional Family Medical History / Comment(s): colon Mother Family Medical History: Hypertension, Liver Disease Medications and Allergies Home Medications Medication Instructions Recorded Confirmed Type Finasteride [Proscar] 5 mg PO DAILY 06/20/14 10/21/19 History diphenhydrAMINE [Benadryl] 50 mg PO DAILY PRN 03/05/15 10/21/19 History Acetaminophen [Tylenol Extra 1,000 mg PO Q8H PRN 03/11/19 10/21/19 History Strength] Amlactin Lotion 1 applicate TOPICAL DAILY 03/11/19 10/21/19 History Calcipotriene [Dovonex] 1 applic TOPICAL BID PRN 03/11/19 10/21/19 History Halobetasol Propionate [Ultravate] 1 applic TOPICAL BID PRN 03/11/19 10/21/19 History Tolterodine ER [Detrol LA] 4 mg PO HS 03/11/19 10/21/19 History Triamcinolone 0.025% Cream 1 applic TOPICAL BID PRN 03/11/19 10/21/19 History [Kenalog 0.025% Cream] Triamcinolone 0.1% Cream [Kenalog 1 applicatio TOPICAL BID PRN 03/11/19 10/21/19 History 0.1% Cream] Albuterol Inhaler [Ventolin Hfa 1 puff INHALATION RT-Q6H PRN 10/21/19 10/21/19 History Inhaler] Dextromethorphan Polistirex 60 mg PO Q12HR PRN 10/21/19 10/21/19 History [Delsym] Lidocaine-Hc 3-0.5% 1 applic TOPICAL DAILY PRN 10/21/19 10/21/19 History Loratadine [Claritin] 10 mg PO DAILY PRN 10/21/19 10/21/19 History Tretinoin [Tretinoin 0.1%] 1 applic TOPICAL BID 10/21/19 10/21/19 History Allergies Allergy/AdvReac Type Severity Reaction Status Date / Time adhesive AdvReac Itching Verified 10/21/19 18:27 And Skin Irritation Physical Exam Vitals: Vital Signs Temp Pulse Pulse Resp BP BP Pulse Ox 10/22/19 08:00 17 10/22/19 07:00 98.3 F 77 17 98/56 96 10/22/19 03:40 18 10/22/19 01:04 98.8 F 88 18 115/60 95 10/22/19 00:05 18 10/21/19 20:15 99.3 F 93 20 112/58 94 L 10/21/19 19:55 93 20 10/21/19 19:24 98.3 F 85 17 116/59 97 10/21/19 17:42 98 F 81 19 123/62 97 10/21/19 14:02 99.7 F H 88 20 95/52 95 Intake and Output 07/28/20 07/29/20 07/29/20 22:59 06:59 14:59 Intake Total 200 Balance 200 Intake: Oral 200 Other: Voiding Method Toilet Toilet Urinal Urinal # Voids 2 2 Weight 65.771 kg Results 10/22/19 07:07 10/22/19 07:07 Cardiac Enzymes 10/21/19 10/21/19 10/21/19 Range/Units 15:00 15:00 21:46 AST 22 (17-59) U/L Troponin I 0.066 H* 0.037 H* (0.000-0.034) ng/mL 10/21/19 Range/Units 23:57 AST (17-59) U/L Troponin I 0.036 H* (0.000-0.034) ng/mL Coagulation 10/21/19 Range/Units 15:00 PT 11.8 (9.0-12.0) sec APTT 27.1 (22.0-30.0) sec CBC 10/21/19 10/22/19 Range/Units 15:00 07:07 WBC 10.6 7.7 (3.8-10.6) k/uL RBC 4.25 L 3.87 L (4.30-5.90) m/uL Hgb 13.5 12.3 L (13.0-17.5) gm/dL Hct 41.6 38.2 L (39.0-53.0) % Plt Count 204 177 (150-450) k/uL Comprehensive Metabolic Panel 10/21/19 10/22/19 Range/Units 15:00 07:07 Sodium 131 L 133 L (137-145) mmol/L Potassium 4.2 4.6 (3.5-5.1) mmol/L Chloride 98 103 (98-107) mmol/L Carbon Dioxide 26 26 (22-30) mmol/L BUN 21 H 23 H (9-20) mg/dL Creatinine 0.69 0.60 L (0.66-1.25) mg/dL Glucose 161 H 112 H (74-99) mg/dL Calcium 8.7 8.3 L (8.4-10.2) mg/dL AST 22 (17-59) U/L ALT 16 (4-49) U/L Alkaline Phosphatase 72 (38-126) U/L Total Protein 6.2 L (6.3-8.2) g/dL Albumin 3.3 L (3.5-5.0) g/dL Current Medications Generic Name Dose Route Start Last Admin Trade Name Freq PRN Reason Stop Dose Admin Acetaminophen 650 mg 10/21/19 17:10 Tylenol Tab PO Q6HR PRN Mild Pain or Fever > 100.5 Albuterol Sulfate 2.5 mg 10/22/19 00:17 Ventolin Nebulized INHALATION RT-Q6H PRN Shortness Of Breath Benzonatate 100 mg 10/21/19 18:22 10/22/19 08:52 Tessalon Perles PO 100 mg TID PRN Administration Cough Clobetasol Propionate 1 applic 10/21/19 18:13 Temovate TOPICAL DAILY PRN Itching Diphenhydramine HCl 50 mg 10/21/19 18:13 Benadryl PO DAILY PRN Itching Finasteride 5 mg 10/22/19 09:00 10/22/19 08:52 Proscar PO 5 mg DAILY [place] Administration Vancomycin HCl 1,250 mg/ 250 mls @ 125 mls/hr 10/22/19 06:00 10/22/19 05:55 Sodium Chloride IVPB 125 mls/hr Q12H [place] Administration Sodium Chloride 1,000 mls @ 20 mls/hr 10/21/19 17:15 10/22/19 09:26 Saline 0.9% IV Not Given .Q24H [place] Sodium Chloride 1,000 mls @ 100 mls/hr 10/22/19 09:15 10/22/19 10:08 Saline 0.9% IV 100 mls/hr .Q10H [place] Administration Lactic Acid 1 applic 10/22/19 09:00 10/22/19 09:18 Ammonium Lactate TOPICAL Not Given DAILY [place] Metoprolol Tartrate 25 mg 10/21/19 22:00 10/22/19 09:16 Lopressor PO 25 mg BID [place] Administration Naloxone HCl 0.2 mg 10/21/19 17:10 Narcan IV Q2M PRN Opioid Reversal Patient's Own ( 1 applic 10/21/19 18:13 Calcipotriene [ TOPICAL Dovonex] 1 Applic) DIRECTED PRN skin breakdown Oxybutynin Chloride 10 mg 10/21/19 21:30 10/21/19 22:02 Ditropan Xl PO 10 mg 2130 [place] Administration Triamcinolone Acetonide 1 applic 10/21/19 18:13 Kenalog TOPICAL BID PRN Skin Irritation Intake and Output 10/21/19 10/22/19 10/22/19 22:59 06:59 14:59 Intake Total 200 Balance 200 Intake: Oral 200 Other: Voiding Method Toilet Toilet Urinal Urinal # Voids 2 2 Weight 65.771 kg 10/22/19 07:07 10/22/19 07:07
[2019-10-22] MEDS: methylPREDNISolone SOD SUCCI 40 MG/ML 1 ML VIAL IV SCH ×3 (14:09→23:05)
[2019-10-22] MEDS: AMPICILLIN-SULBACTAM 3 GM in SODIUM CHLORIDE 0.9% 100 ML IVPB SCH ×2 (18:06→23:05)
[2019-10-22] MEDS: OXYBUTYNIN 10 MG TAB.ER.24 PO SCH (20:56)
--- NOTE | 2019-10-22 23:38 | P.CONS ---
History of Present Illness - Reason for Consult Consult date: 10/22/19 SIRS Requesting physician: So Dias - Chief Complaint Cough 6 weeks, fever 1 day - History of Present Illness Patient is a 79-year-old male with a past medical history significant for malignant melanoma this patient currently undergoing experimental im munotherapy with the last chemotherapy was about 3 weeks ago the patient was scheduled to received his stools this Sunday 2 days ago however that was not done as apparently the patient has been complaining of cough and been going on for almost 6 weeks patient mention in the beginning his cough was podiatry of greenish sputum but no hemoptysis however lately his cough has been mostly dry moderate intensity and is not bringing up any sputum denies having any pleuritic chest pain patient denies having any nausea or any vomiting denies having any choking on the food however his mentioned that at times water goes along. He does have some coughing spells the patient did develop fever yesterday morning that concern the patient and subsequently presented to the ER on arrival to the patient did have low-grade fever of 99.7. Did have a normal white count chest x-ray was negative patient has been started on vancomycin and was admitted to the hospital infectious disease was consulted for further management of antibiotic therapy patient mention that he recently did have a CT of the neck ch est and abdominal pelvis that was done and had before Hospital on 10/11/2019 for staging of his disease there was no evidence of any recurrence of malignancy however after removing THE results and there was question of mucous plugging in his lungs and some lymphadenopathy Review of Systems Positive point has been mentioned in the HPI rest of the systems are negative Past Medical History Past Medical History: Cancer, Prostate Disorder, Skin Disorder Additional Past Medical History / Comment(s): Enlarged prostate,tachycardia,Joaquin's Skin Disease History of Any Multi-Drug Resistant Organisms: None Reported Past Surgical History: Ear Surgery, Orthopedic Surgery Additional Past Surgical History / Comment(s): foot sx r/t torn achilles,vasectomy Past Anesthesia/Blood Transfusion Reactions: No Reported Reaction Additional Past Anesthesia/Blood Transfusion Reaction / Comm: Never has had blood transfusion Past Psychological History: No Psychological Hx Reported Smoking Status: Never smoker Past Alcohol Use History: Rare Past Drug Use History: None Reported - Past Family History Father Family Medical History: Cancer Additional Family Medical History / Comment(s): colon Mother Family Medical History: Hypertension, Liver Disease Medications and Allergies Home Medications Medication Instructions Recorded Confirmed Type Finasteride [Proscar] 5 mg PO DAILY 06/20/14 10/21/19 History diphenhydrAMINE [Benadryl] 50 mg PO DAILY PRN 03/05/15 10/21/19 History Acetaminophen [Tylenol Extra 1,000 mg PO Q8H PRN 03/11/19 10/21/19 History Strength] Amlactin Lotion 1 applicate TOPICAL DAILY 03/11/19 10/21/19 History Calcipotriene [Dovonex] 1 applic TOPICAL BID PRN 03/11/19 10/21/19 History Halobetasol Propionate [Ultravate] 1 applic TOPICAL BID PRN 03/11/19 10/21/19 History Tolterodine ER [Detrol LA] 4 mg PO HS 03/11/19 10/21/19 History Triamcinolone 0.025% Cream 1 applic TOPICAL BID PRN 03/11/19 10/21/19 History [Kenalog 0.025% Cream] Triamcinolone 0.1% Cream [Kenalog 1 applicatio TOPICAL BID PRN 03/11/19 10/21/19 History 0.1% Cream] Albuterol Inhaler [Ventolin Hfa 1 puff INHALATION RT-Q6H PRN 10/21/19 10/21/19 History Inhaler] Dextromethorphan Polistirex 60 mg PO Q12HR PRN 10/21/19 10/21/19 History [Delsym] Lidocaine-Hc 3-0.5% 1 applic TOPICAL DAILY PRN 10/21/19 10/21/19 History Loratadine [Claritin] 10 mg PO DAILY PRN 10/21/19 10/21/19 History Tretinoin [Tretinoin 0.1%] 1 applic TOPICAL BID 10/21/19 10/21/19 History Allergies Allergy/AdvReac Type Severity Reaction Status Date / Time adhesive AdvReac Itching Verified 10/21/19 18:27 And Skin Irritation Physical Exam Vitals: Vital Signs Temp Pulse Pulse Resp BP BP Pulse Ox 10/22/19 08:00 17 10/22/19 07:00 98.3 F 77 17 98/56 96 10/22/19 03:40 18 10/22/19 01:04 98.8 F 88 18 115/60 95 10/22/19 00:05 18 10/21/19 20:15 99.3 F 93 20 112/58 94 L 10/21/19 19:55 93 20 10/21/19 19:24 98.3 F 85 17 116/59 97 10/21/19 17:42 98 F 81 19 123/62 97 10/21/19 14:02 99.7 F H 88 20 95/52 95 Intake and Output 10/21/19 10/22/19 10/22/19 22:59 06:59 14:59 Intake Total 400 Balance 400 Intake: Intake, IV Titration 200 Amount Sodium Chloride 0.9% 1, 200 000 ml @ 100 mls/hr IV . Q10H [facility] Rx#:[id number] Oral 200 Other: Voiding Method Toilet Toilet Urinal Urinal # Voids 2 2 Weight 65.771 kg GENERAL DESCRIPTION: An elderly male lying in bed, no distress. No tachypnea or accessory muscle of respiration use. HEENT: Shows Pallor , no scleral icterus. Oral mucous membrane is dry. No pharyngeal erythema or thrush NECK: Trachea central, no thyromegaly. LUNGS: Unlabored breathing. Decreased breath sounds at the base. No wheeze or crackle. HEART: S1, S2, regular rate and rhythm. No loud murmur ABDOMEN: Soft, no tenderness , guarding or rigidity, no organomegaly EXTREMITIES: No edema of feet. SKIN: No rash, no masses palpable. NEUROLOGICAL: The patient is awake, alert, oriented x3, mood and affect normal. Results CBC & Chem 7: 10/22/19 07:07 10/22/19 07:07 Labs: Abnormal Lab Results - Last 24 Hours (Table) 10/21/19 10/21/19 10/21/19 Range/Units 15:00 15:00 15:00 RBC 4.25 L (4.30-5.90) m/uL Hgb (13.0-17.5) gm/dL Hct (39.0-53.0) % Neutrophils # 9.6 H (1.3-7.7) k/uL Lymphocytes # 0.4 L (1.0-4.8) k/uL INR 1.2 H (<1.2) D-Dimer 0.69 H (<0.60) mg/L FEU Sodium 131 L (137-145) mmol/L BUN 21 H (9-20) mg/dL Creatinine (0.66-1.25) mg/dL Glucose 161 H (74-99) mg/dL Calcium (8.4-10.2) mg/dL Creatine Kinase 36 L (55-170) U/L Troponin I (0.000-0.034) ng/mL Total Protein 6.2 L (6.3-8.2) g/dL Albumin 3.3 L (3.5-5.0) g/dL Urine Protein (Negative) Urine Ketones (Negative) Urine Blood (Negative) Urine WBC (0-5) /hpf Hyaline Casts (0-2) /lpf Urine Mucus (None) /hpf 10/21/19 10/21/19 10/21/19 Range/Units 15:00 15:35 21:46 RBC (4.30-5.90) m/uL Hgb (13.0-17.5) gm/dL Hct (39.0-53.0) % Neutrophils # (1.3-7.7) k/uL Lymphocytes # (1.0-4.8) k/uL INR (<1.2) D-Dimer (<0.60) mg/L FEU Sodium (137-145) mmol/L BUN (9-20) mg/dL Creatinine (0.66-1.25) mg/dL Glucose (74-99) mg/dL Calcium (8.4-10.2) mg/dL Creatine Kinase (55-170) U/L Troponin I 0.066 H* 0.037 H* (0.000-0.034) ng/mL Total Protein (6.3-8.2) g/dL Albumin (3.5-5.0) g/dL Urine Protein Trace H (Negative) Urine Ketones 1+ H (Negative) Urine Blood Small H (Negative) Urine WBC 7 H (0-5) /hpf Hyaline Casts 5 H (0-2) /lpf Urine Mucus Many H (None) /hpf 10/21/19 10/22/19 10/22/19 Range/Units 23:57 07:07 07:07 RBC 3.87 L (4.30-5.90) m/uL Hgb 12.3 L (13.0-17.5) gm/dL Hct 38.2 L (39.0-53.0) % Neutrophils # (1.3-7.7) k/uL Lymphocytes # 0.9 L (1.0-4.8) k/uL INR (<1.2) D-Dimer (<0.60) mg/L FEU Sodium 133 L (137-145) mmol/L BUN 23 H (9-20) mg/dL Creatinine 0.60 L (0.66-1.25) mg/dL Glucose 112 H (74-99) mg/dL Calcium 8.3 L (8.4-10.2) mg/dL Creatine Kinase (55-170) U/L Troponin I 0.036 H* (0.000-0.034) ng/mL Total Protein (6.3-8.2) g/dL Albumin (3.5-5.0) g/dL Urine Protein (Negative) Urine Ketones (Negative) Urine Blood (Negative) Urine WBC (0-5) /hpf Hyaline Casts (0-2) /lpf Urine Mucus (None) /hpf Assessment and Plan Assessment: 1- patient presented to hospital with a chronic cough of 6 weeks duration And a fever of 1 day in this patient who did have a CT of the chest completed on 10/11/2019 at the outside facility shows some lymphadenopathy and mucus plugging and no consolidation patient chest x-ray reported negative for acute infiltrate with concern for possible pneumonitis. The likely pathogen with a mucus plugging seen on the previous CT were negative for 44 and regular before and usually associated with postobstructive pneumonitis (1) SIRS (systemic inflammatory response syndrome) Current Visit: Yes Status: Acute Code(s): R65.10 - SIRS OF NON-INFECTIOUS ORIGIN W/O ACUTE ORGAN DYSFUNCTION SNOMED Code(s): 592502806 Plan: 1- we will try to obtain sputum for Gram stain and culture 2- check a CRP and pro-calcitonin level 3- discontinue vancomycin 4- start the patient on Unasyn 3 g every 6 hours We will follow on clinical condition and cultures to further adjust medication if needed Thank you for this consultation will follow this patient with you Time with Patient: Greater than 30
[2019-10-23] MEDS: AMPICILLIN-SULBACTAM 3 GM in SODIUM CHLORIDE 0.9% 100 ML IVPB SCH ×4 (05:32→23:38)
[2019-10-23] MEDS: SODIUM CHLORIDE 0.9% 1,000 ML IV SCH ×3 (05:32→18:28)
[2019-10-23 07:29] LABS: Basophils % (A) 0 %; Eosinophils % (A) 0 %; HCT 37.7 % (39.0-53.0); HGB 12.2 gm/dL (13.0-17.5); Lymphocytes # (A) 0.7 k/uL (1.0-4.8); Lymphocytes % (A) 10 %; MCH 31.8 pg (25.0-35.0); MCHC 32.4 g/dL (31.0-37.0); MCV 98.2 fL (80.0-100.0); Mean Platelet Volume 8.1; Monocytes # (A) 0.2 k/uL (0-1.0); Monocytes % (A) 2 %; Neutrophils # (A) 5.9 k/uL (1.3-7.7); Neutrophils % (A) 87 %; Platelet Count 200 k/uL (150-450); RBC 3.84 m/uL (4.30-5.90); RDW 12.2 % (11.5-15.5); WBC 6.9 k/uL (3.8-10.6)
[2019-10-23] MEDS: BENZONATATE 100 MG CAP PO PRN ×3 (09:13→23:37)
[2019-10-23] MEDS: methylPREDNISolone SOD SUCCI 40 MG/ML 1 ML VIAL IV SCH ×3 (09:13→23:37)
[2019-10-23] MEDS: FINASTERIDE 5 MG TAB PO SCH (09:41)
[2019-10-23] MEDS: AMMONIUM LACTATE 12% CREAM 140 GM TUBE TOPICAL SCH (09:41)
[2019-10-23] MEDS: METOPROLOL TARTRATE 25 MG TAB PO SCH ×2 (09:41→21:10)
--- NOTE | 2019-10-23 11:04 | P.PN ---
Subjective Progress Note Date: 10/22/19 Principal diagnosis: chronic cough and fever Patient is a 79-year-old male with a known history of skin cancer/melanoma currently on clinical study drugs for the past 2 years, BPH, Glovers skin disease came to ER with complaints of persistent cough for the past 6 weeks. Cough with mainly clear sputum. Patient was seen by his PCP and Dr. Newby urologist and was given prednisone course as well as antibiotics in the form of azithromycin. Patient is also seen by his oncologist and since the patient is having cough mainly in the nighttime patient was also prescribed PPI for possible reflux. His symptoms never went away and last night he was having body aches and congestion and also became febrile. Patient had low-grade fever last night but this morning his fever was 101.7 as per his at bedside. Patient presented to ER with worsening symptoms.Patient denied any leg swelling. Laboratory data showed WBC 10.6, hemoglobin 13.4 and platelets 204 D-dimer 0.69 absolute lymphocyte count 0.4 Sodium 131, potassium 4.2, chloride 98 and BUN 21 creatinine 0.69 Troponin 0 0.066 and 0.037 proBNP 2660 UA negative for infection Vitals blood pressure 95/52 pulse 88 respiration 20 and temperature 99.7 and saturating at 95% on room air on admission. Chest x-ray showed no acute pulmonary disease. EKG showed normal sinus rhythm 10/22/2019 Patient is currently sitting in the bed comfortably. Still having cough. Patient has a defibrillator otherwise. Currently being continued on vancomycin. Patient had recent CT of the neck and chest and abdomen pelvis that was done on 10/11/2019 for staging of his disease. No evidence of any recurrence of malignancy. However, she will mucus blood in his lungs andlymphadenopathy was n oted. Possible date of postobstructive pneumonitis is being considered. ID is on board.patient was also started on IV steroids.pulmonary was consulted. no complains of chest pain. No nausea vomiting or diarrhea. No abdominal pain. No headache or dizziness or lightheadedness. Patient was seen by cardiology due to possible nonsustained V. tach which is likely sinus tachycardia with a right bundle branch block secondary infection. 2-D echocardiography was ordered. Current medications reviewed. Objective - Vital Signs Vital signs: Vital Signs Temp 97.8 F 10/22/19 19:30 Pulse 80 10/22/19 20:52 Resp 18 07/29/20 19:50 BP 106/60 10/22/19 20:52 Pulse Ox 93 L 10/22/19 19:30 Intake & Output 10/22/19 10/22/19 10/23/19 06:59 18:59 06:59 Intake Total 400 Balance 400 Intake: Intake, IV Titration 200 Amount Sodium Chloride 0.9% 1, 200 000 ml @ 100 mls/hr IV . Q10H [facility] Rx#:[id number] Oral 200 Other: Voiding Method Toilet Toilet Toilet Urinal Urinal Urinal # Voids 2 - Exam PHYSICAL EXAMINATION: Patient is lying in the bed comfortably, no acute distress, awake alert and oriented.. HEENT: Normocephalic. Neck is supple. Pupils reactive. Nostrils clear. Oral cavity is moist. Ears reveal no drainage. Neck reveals no JVD, carotid bruits, or thyromegaly. CHEST EXAMINATION: Trachea is central. Symmetrical expansion. patient does have coarse breath sounds in the upper lobes and scattered rhonchi.. CARDIAC: Normal S1, S2 with no gallops. No murmurs ABDOMEN: Soft. Bowel sounds normal. No organomegaly. No abdominal bruits. Extremities: reveal no edema. No clubbing or cyanosis Neurologically awake, alert, oriented x3 with well-coordinated movements. No focal deficits noted Skin: No rash or skin lesions. Psychiatric: Coperative. Nonsuicidal Musculoskeletal: No joint swelling or deformity. Normal range of motion. - Labs CBC & Chem 7: 10/23/19 06:53 10/22/19 07:07 Labs: Abnormal Lab Results - Last 24 Hours (Table) 10/21/19 10/21/19 10/22/19 Range/Units 21:46 23:57 07:07 RBC 3.87 L (4.30-5.90) m/uL Hgb 12.3 L (13.0-17.5) gm/dL Hct 38.2 L (39.0-53.0) % Lymphocytes # 0.9 L (1.0-4.8) k/uL Sodium (137-145) mmol/L BUN (9-20) mg/dL Creatinine (0.66-1.25) mg/dL Glucose (74-99) mg/dL Calcium (8.4-10.2) mg/dL Troponin I 0.037 H* 0.036 H* (0.000-0.034) ng/mL 10/22/19 Range/Units 07:07 RBC (4.30-5.90) m/uL Hgb (13.0-17.5) gm/dL Hct (39.0-53.0) % Lymphocytes # (1.0-4.8) k/uL Sodium 133 L (137-145) mmol/L BUN 23 H (9-20) mg/dL Creatinine 0.60 L (0.66-1.25) mg/dL Glucose 112 H (74-99) mg/dL Calcium 8.3 L (8.4-10.2) mg/dL Troponin I (0.000-0.034) ng/mL Microbiology - Last 24 Hours (Table) 10/21/19 16:17 Blood Culture - Preliminary Blood No Growth after 24 hours Assessment and Plan Assessment: New onset fever along with chronic cough x 6wk. Definitive etiology unknown at this time. SIRS with possible postobstructive pneumonitis/pneumonia Elevated troponin level likely due to demand mismatch sinus tachycardia with right bundle branch block Elevated BNP level at 2660 without other evidence of heart failure Mild hypovolemic hyponatremia Melanoma currently being treated with study drugs. BPH DVT prophylaxis Plan: Patient was given a dose of vancomycin and cefepime in the ER. antibiotics changed to Unasyn as per ID recommendations. Continue symptomatic management for cough and breathing treatments as needed. Follow-up culture report and ID is following. we will also consult pulmonary for further evaluation. Troponin level is trending down. Continue with telemetry monitoring and further recommendations based on the clinical course. Time with Patient: Greater than 30
--- NOTE | 2019-10-23 16:30 | CONS ---
CONSULTATION PULMONARY/CRITICAL CARE CONSULTATION: DATE OF SERVICE: 10/23/2019 REASON FOR CONSULTATION: Cough. This is a 79-year-old male who apparently presented to the emergency room on September at 13:55 complaining of 6 weeks of persistent cough. The patient also has a fever. In addition, the patient's cough is mostly nonproductive but occasionally productive of clear to white phlegm. The patient has been receiving chemotherapy for his malignant melanoma. Because he had a fever, he could not receive his last round of chemotherapy. In addition, he has had been having nasal drainage. In addition, he is hard of hearing. This is a chronic problem. He denies any chest pain or pressure. He is not coughing up any blood. The cough is mostly dry. He really denies any shortness of breath per se. He denies a prior history of any lung issues. He denies any new medications currently. Again, no history of chronic lung disease. MEDICATIONS: Reviewed. He is on Proscar, Benadryl, Tylenol, Amlactin lotion, Dovonex, Ultravate, Detrol LA, Kenalog cream, and triamcinolone cream. ALLERGIES: ADHESIVE TAPES. MEDICAL HISTORY: Enlarged prostate, malignant melanoma, and tachycardia. 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 SURGICAL HISTORY: Includes ear surgery, foot surgery, Achilles surgery, and vasectomy. SOCIAL HISTORY: Essentially negative for tobacco use. He has rare alcohol use. No illicit drug use. FAMILY HISTORY: Positive for colon cancer in the father and hypertension, liver disease in the mother. REVIEW OF SYSTEMS: CONSTITUTIONAL: Negative. NEUROLOGIC: Negative. HEENT: Negative. CARDIOVASCULAR: Negative. PULMONARY: Cough. GI: Negative. : Negative. RHEUMATOLOGIC: Negative. IMMUNOLOGIC: Negative. ENDOCRINOLOGIC: Negative. DERMATOLOGIC: Brillion's skin disease/itching. Current vital signs include a temperature of 98.6, heart rate 70, respiratory rate 19, blood pressure 127/68, mean 87, room-air saturation is 95%. Appears in no acute distress. No respiratory distress. No audible wheezing. No use of accessory muscles. No conversational dyspnea. HEENT: Examination is grossly unremarkable. NECK: Supple. Full range of motion. No adenopathy. Neck veins are flat. CARDIOVASCULAR: Examination reveals regular rhythm and rate. Heart rate. S1, S2 normal. No S3, S4, or murmur. LUNGS: Reveal clear breath sounds. No wheezes or rhonchi. No crackles. Breath sounds equal bilaterally. ABDOMEN: Soft, bowel sounds are heard. EXTREMITIES: Intact without cyanosis, clubbing, or edema. SKIN: Reveals a rash on his chest and back. This is consistent with his Maurilio's skin disease. NEUROLOGIC: Examination is nonfocal. CURRENT LABORATORY DATA: Includes a white count 6.9, hemoglobin 12.2, hematocrit 37.7, platelet count 200,000, sodium 133, potassium 4.6, chloride is 103, CO2 is 26, anion gap is 4. BUN and creatinine were 23 and 0.6. Troponins were 0.037, 0.036 and 0.036. C-reactive protein is 59. Urine is evaluated. It is clear. Specific gravity is 1.021, blood is small positive, leukocyte esterase was negative. Nitrite was negative. The rest of the urinalysis was essentially negative. TSH was normal. ASSESSMENT: 1. Cough, of unclear etiology. This may relate to underlying obstructive lung disease, i.e. asthma or upper airway cough syndrome/postnasal drip. 2. History of malignant melanoma, currently receiving chemotherapy. 3. Slight temperature elevation of unclear etiology. 4. Benign prostatic hypertrophy. 5. Brillion's skin disease. 6. History of tachycardia. 7. Various orthopedic procedures. PLAN: Currently, the patient is stable. No temperature elevation. No respiratory issues. The patient will get a simple spirometry here in the hospital. He may benefit from a full PFT once discharged. Additional recommendations and suggestions are forthcoming. Since he is having continuous nasal drainage, a histamine or decongestant might be in order. Also, steroid nasal spray such as fluticasone might help as well. Most of this workup can be done as an outpatient. Finally, if all else fails, bronchoscopy with endobronchial evaluation as well as evaluation of the upper airway would be important as a possible etiology for the patient's cough. Additional recommendations and suggestions are forthcoming. Please make sure he has a followup appointment with me once discharged. Additional recommendations and suggestions are forthcoming. MMODL / IJN: [id number] /
--- NOTE | 2019-10-23 17:39 | PN ---
PROGRESS NOTE DATE OF SERVICE: 10/23/2019 REASON FOR FOLLOWUP: Fever, possible pneumonia. INTERVAL HISTORY: The patient is currently afebrile. The patient is feeling better. The patient continues to have a cough, but it is mostly dry in nature. No chest pain. No nausea, no vomiting. No abdominal pain or diarrhea. PHYSICAL EXAMINATION: Blood pressure 129/73 with a pulse of 80, temperature 97.6. He is 91% on room air. General description is an elderly male up in the chair in no distress. RESPIRATORY SYSTEM: Unlabored breathing with decreased breath sounds at the base. No wheeze. HEART: S1, S2. Regular rate and rhythm. ABDOMEN: Soft. No tenderness. LABS: Hemoglobin is 12.2, white count 6.9, BUN of 23, creatinine 0.60. DIAGNOSTIC IMPRESSION AND PLAN: Patient admitted to hospital with fever and cough in this patient whose outpatient CT shows mucous plugging with concern for possible pneumonia. Sputum culture has been obtained and pending. Patient is covered with Unasyn; to continue. Hopefully finish therapy with oral antibiotics. Continue supportive care. MMODL / IJN: [id number] /
[2019-10-23] MEDS: OXYBUTYNIN 10 MG TAB.ER.24 PO SCH (21:10)
--- NOTE | 2019-10-24 00:30 | P.PN ---
Subjective Progress Note Date: 10/23/19 Principal diagnosis: chronic cough and fever Patient is a 79-year-old male with a known history of skin cancer/melanoma currently on clinical study drugs for the past 2 years, BPH, Glovers skin disease came to ER with complaints of persistent cough for the past 6 weeks. Cough with mainly clear sputum. Patient was seen by his PCP and Dr. Newby urologist and was given prednisone course as well as antibiotics in the form of azithromycin. Patient is also seen by his oncologist and since the patient is having cough mainly in the nighttime patient was also prescribed PPI for possible reflux. His symptoms never went away and last night he was having body aches and congestion and also became febrile. Patient had low-grade fever last night but this morning his fever was 101.7 as per his at bedside. Patient presented to ER with worsening symptoms.Patient denied any leg swelling. Laboratory data showed WBC 10.6, hemoglobin 13.4 and platelets 204 D-dimer 0.69 absolute lymphocyte count 0.4 Sodium 131, potassium 4.2, chloride 98 and BUN 21 creatinine 0.69 Troponin 0 0.066 and 0.037 proBNP 2660 UA negative for infection Vitals blood pressure 95/52 pulse 88 respiration 20 and temperature 99.7 and saturating at 95% on room air on admission. Chest x-ray showed no acute pulmonary disease. EKG showed normal sinus rhythm 10/22/2019 Patient is currently sitting in the bed comfortably. Still having cough. Patient has a defibrillator otherwise. Currently being continued on vancomycin. Patient had recent CT of the neck and chest and abdomen pelvis that was done on 10/11/2019 for staging of his disease. No evidence of any recurrence of malignancy. However, she will mucus blood in his lungs andlymphadenopathy was n oted. Possible date of postobstructive pneumonitis is being considered. ID is on board.patient was also started on IV steroids.pulmonary was consulted. no complains of chest pain. No nausea vomiting or diarrhea. No abdominal pain. No headache or dizziness or lightheadedness. Patient was seen by cardiology due to possible nonsustained V. tach which is likely sinus tachycardia with a right bundle branch block secondary infection. 2-D echocardiography was ordered. 10/23/2019 Patient is currently lying in bed comfortably. Still having cough but improved comparatively. No complaints of chest pain. Patient is being continued on antibiotics at home for Unasyn. Continued on breathing treatments and IV steroids. Pulmonary recommends PFTs and outpatient follow-up for evaluation of obstructive airway disease. No complaints of nausea vomiting or abdominal pain. Anticipate discharge in the next 24 hours with more clinical improvement. Current medications reviewed. Objective - Vital Signs Vital signs: Vital Signs Temp 97.6 F 10/23/19 15:34 Pulse 80 10/23/19 15:34 Resp 96 H 10/23/19 15:34 BP 129/73 10/23/19 15:34 Pulse Ox 94 L 10/23/19 00:40 Intake & Output 10/23/19 10/23/19 10/24/19 06:59 18:59 06:59 Intake Total 100 Output Total 400 Balance 100 -400 Intake: Oral 100 Output: Urine 400 Other: Voiding Method Toilet Urinal # Voids 1 3 - Exam PHYSICAL EXAMINATION: Patient is lying in the bed comfortably, no acute distress, awake alert and oriented.. HEENT: Normocephalic. Neck is supple. Pupils reactive. Nostrils clear. Oral cavity is moist. Ears reveal no drainage. Neck reveals no JVD, carotid bruits, or thyromegaly. CHEST EXAMINATION: Trachea is central. Symmetrical expansion. patient does have coarse breath sounds in the upper lobes and scattered rhonchi.. CARDIAC: Normal S1, S2 with no gallops. No murmurs ABDOMEN: Soft. Bowel sounds normal. No organomegaly. No abdominal bruits. Extremities: reveal no edema. No clubbing or cyanosis Neurologically awake, alert, oriented x3 with well-coordinated movements. No focal deficits noted Skin: No rash or skin lesions. Psychiatric: Coperative. Nonsuicidal Musculoskeletal: No joint swelling or deformity. Normal range of motion. - Labs CBC & Chem 7: 10/23/19 06:53 10/22/19 07:07 Labs: Abnormal Lab Results - Last 24 Hours (Table) 10/23/19 10/23/19 Range/Units 06:53 06:53 RBC 3.84 L (4.30-5.90) m/uL Hgb 12.2 L (13.0-17.5) gm/dL Hct 37.7 L (39.0-53.0) % Lymphocytes # 0.7 L (1.0-4.8) k/uL C-Reactive Protein 59.0 H (<10.0) mg/L Microbiology - Last 24 Hours (Table) 10/21/19 16:17 Blood Culture - Preliminary Blood No Growth after 48 hours 10/23/19 08:35 Sputum Culture - Preliminary Sputum Assessment and Plan Assessment: New onset fever along with chronic cough x 6wk. Definitive etiology unknown at this time.Possible obstructive airway disease/asthma. SIRS with possible postobstructive pneumonitis/pneumonia Elevated troponin level likely due to demand mismatch sinus tachycardia with right bundle branch block Elevated BNP level at 2660 without other evidence of heart failure Mild hypovolemic hyponatremia Melanoma currently being treated with study drugs. BPH DVT prophylaxis Plan: Patient was given a dose of vancomycin and cefepime in the ER. antibiotics changed to Unasyn as per ID recommendations. Continue symptomatic management for cough and breathing treatments as needed. Follow-up culture report and ID is following. we will also consult pulmonary for further evaluation. Troponin level is trending down. Continue with telemetry monitoring and further recommendations based on the clinical course. Time with Patient: Greater than 30
[2019-10-24 01:20] VITALS: BP 140/78; PULSE 67; TEMP 97.7
[2019-10-24 04:50] VITALS: RESP 17
[2019-10-24] MEDS: AMPICILLIN-SULBACTAM 3 GM in SODIUM CHLORIDE 0.9% 100 ML IVPB SCH (06:09)
[2019-10-24] MEDS: FINASTERIDE 5 MG TAB PO SCH (08:33)
[2019-10-24] MEDS: methylPREDNISolone SOD SUCCI 40 MG/ML 1 ML VIAL IV SCH (08:33)
[2019-10-24] MEDS: METOPROLOL TARTRATE 25 MG TAB PO SCH (08:33)
[2019-10-24] MEDS: BENZONATATE 100 MG CAP PO PRN (09:07)
[2019-10-24] MEDS: AMMONIUM LACTATE 12% CREAM 140 GM TUBE TOPICAL SCH (09:08)
--- NOTE | 2019-10-24 13:25 | P.PN ---
Subjective Progress Note Date: 10/24/19 Principal diagnosis: Cough, of unclear etiology On 10/24/2019 patient seen in follow-up on general medical surgical floor. Patient was admitted on 10/21/2019 complaints of 6 weeks worth of persistent cough. Did have a fever, his cough was nonproductive, and only occasionally productive with clear to white phlegm. Patient has a known history of malignant melanoma and currently receiving treatment at [facility] with some type of experimental immunotherapy. Denies any history of smoking. 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 We will order the bedside spirometry which showed FEV1 of 2.43 L or 81% of predicted, and forced vital capacity of 3.0 L or 72% of predicted. His today's labs have been reviewed, showing white blood cell, 6.9, hemoglobin of 12.2, his proptosis on was negative at 0.08 pro-calcitonin level was negative at 0.08, his troponins were 0.066, 0.037, and 0.036. he denies any chest pain, his Coronavirus PCR was negative. His lungs are clear to auscultation. No significant cough overnight. Room air pulse ox is 96%, his breathing is comfortable, nonlabored. He is afebrile. Patient was started on Tessalon Perles, empiric antibiotic, ID service is following, and IV steroids. Improved, and he can be discharged home from pulmonary perspective Objective - Vital Signs Vital signs: Vital Signs Temp 97.7 F 10/24/19 01:00 Pulse 67 10/24/19 08:00 Resp 17 10/24/19 08:00 BP 140/78 10/24/19 01:00 Pulse Ox 96 10/24/19 01:00 Intake & Output 10/23/19 10/24/19 10/24/19 18:59 06:59 18:59 Intake Total 300 455 Output Total 400 Balance -400 300 455 Intake: Oral 300 455 Output: Urine 400 Other: Voiding Method Toilet Toilet Urinal Urinal # Voids 3 1 - Exam GENERAL EXAM: Alert, very pleasant, 79-year-old white male, on room air, with a pulse ox of 96%, comfortable in no apparent distress. HEAD: Normocephalic/atraumatic. EYES: Normal reaction of pupils, equal size. Conjunctiva pink, sclera white. NOSE: Clear with pink turbinates. THROAT: No erythema or exudates. NECK: No masses, no JVD, no thyroid enlargement, no adenopathy. CHEST: No chest wall deformity. Symmetrical expansion. LUNGS: Equal air entry with no crackles, wheeze, rhonchi or dullness. CVS: Regular rate and rhythm, normal S1 and S2, no gallops, no murmurs, no rubs ABDOMEN: Soft, nontender. No hepatosplenomegaly, normal bowel sounds, no guarding or rigidity. EXTREMITIES: No clubbing, no edema, no cyanosis, 2+ pulses and upper and lower extremities. MUSCULOSKELETAL: Muscle strength and tone normal. SPINE: No scoliosis or deformity SKIN: No rashes CENTRAL NERVOUS SYSTEM: Alert and oriented -3. No focal deficits, tone is normal in all 4 extremities. PSYCHIATRIC: Alert and oriented -3. Appropriate affect. Intact judgment and insight. - Labs CBC & Chem 7: 10/23/19 06:53 10/22/19 07:07 Labs: Microbiology - Last 24 Hours (Table) 10/23/19 08:35 Gram Stain - Preliminary Sputum Sputum Culture - Preliminary 10/21/19 16:17 Blood Culture - Preliminary Blood No Growth after 48 hours Assessment and Plan Plan: Assessment: #1. Cough, unclear etiology, bedside spirometry did not show evidence of underlying obstructive lung disease, FEV1 was 2.43 L or 81%, FVC of 3.2 or 72% of predicted #2. History of malignant melanoma, currently receiving chemotherapy #3. Slight temperature elevation of unclear etiology although pro-calcitonin level came back negative at 0.08 suggesting absence of infection, coronary was negative #4. Benign prostatic hypertrophy #5. Maurilio's skin disease #6. History of tachycardia #7. Various orthopedic procedures Plan: Patient's bedside spirometry results have been reviewed, showing no significant evidence of obstructive lung disease, patient was treated with a combination of IV steroids, empiric antibiotics, Tessalon Perles. No significant cough on today's exam, vital signs have been stable, his pro-calcitonin was negative suggesting absence of infection, Coronavirus PCR negative, no acute events overnight, he is on room air, increase activity as tolerated, would like to see the patient in the office for follow-up in full set of PFTs. I performed a history & physical examination of the patient and discussed their management with my nurse practitioner, Melida Zaragoza. I reviewed the nurse practitioner's note and agree with the documented findings and plan of care. Lung sounds are positive for clear breath sounds. The findings and the impression was discussed with the patient. I attest to the documentation by the nurse practitioner. Time with Patient: Less than 30
--- NOTE | 2019-10-24 14:24 | PN ---
PROGRESS NOTE DATE OF SERVICE: 10/24/2019 REASON FOR FOLLOWUP: Fever, possible pneumonia. INTERVAL HISTORY: Patient is currently afebrile. The patient is feeling better. Breathing comfortably. The patient's cough has decreased in intensity. It is mostly dry in nature. No chest pain. No nausea, no vomiting. No abdominal pain, no diarrhea. PHYSICAL EXAMINATION: Blood pressure 140/78 with a pulse of 57, temperature 97.8. General description is an elderly male, up in the bed in no distress. RESPIRATORY SYSTEM: Unlabored breathing, decreased breath sounds at the base, no wheeze. HEART: S1, S2. Regular rate and rhythm. ABDOMEN: Soft, no tenderness. LABS: No new labs have been obtained today. Blood culture negative. Sputum is currently pending. IMPRESSION/PLAN: Patient admitted to the hospital with fever, cough and sputum likely pneumonia possible source of with a mucous plug seen on the previous CT. The patient is responding to the Unasyn. Finish therapy with oral Augmentin 875 b.i.d. for another 7 days and close outpatient followup. MMODL / IJN: [id number] /
--- NOTE | 2019-10-27 07:59 | CDI ---
Documentation Clarification Form Date: 10/27/19 From: Suri Benson Phone: If you have a question about this query, please contact Naomie Cleveland, Used Car Sales Supervisor at [phone] between 8am and 5pm. Admit Date: 10/21/19 Discharge Date: 10/24/19 Patient Name: ANDREW DAVIS Visit Number: [id number] ATTENTION: The Clinical Documentation Specialists (CDI) and [facility] Coding Staff appreciate your assistance in clarifying documentation. Please respond to the clarification below the line at the bottom and electronically sign. The CDI & [facility] Coding staff will review the response and follow-up if needed. Please note: Queries are made part of the Legal Health Record. If you have any questions, please contact the author of this message via ITS. Dear Dr. So Dias, Patient presented with troponin of: 0.066, 0.037, 0.036 Patient history/risk factors: Melanoma of the face under treatment, hyponatremia, mucous plug-possible pneumonia, mitral regurgitation, Grovers skin disease Clinical indicators: Per H&P-elevated troponin level likely due to demand mismatch, V-tach ruled out, no chest pain Treatment: Troponin trending down In your professional opinion, can you please specify the diagnosis, if any, indicated by the above clinical indicators and treatment? Type II NE Non-Q NE Abnormal troponin Other, please specify Unable to determine Type II NE MTDD
--- NOTE | 2019-10-27 08:08 | CDI ---
Documentation Clarification Form Date: 10/27/19 From: Suri Benson Phone: If you have a question about this query, please contact Naomie Cleveland, Assembly Supervisor at [phone] between 8am and 5pm. Admit Date: 10/21/19 Discharge Date: 10/24/19 Patient Name: ANDREW DAVIS Visit Number: [id number] ATTENTION: The Clinical Documentation Specialists (CDI) and [facility] Coding Staff appreciate your assistance in clarifying documentation. Please respond to the clarification below the line at the bottom and electronically sign. The CDI & [facility] Coding staff will review the response and follow-up if needed. Please note: Queries are made part of the Legal Health Record. If you have any questions, please contact the author of this message via ITS. Dear Dr. So Dias, Conflicting documentation has been found in the medical record: Sepsis is documented in the cardiology consult-Sinus tachycardia with a right bundle branch block likely secondary to underlying infection/sepsis. SIRS is documented in the ED note, infectious disease consult, your PN on 10/21 & 10/22. History/Risk Factors: Melanoma of the face under treatment, hyponatremia, mucous plug-possible pneumonia, mitral regurgitation, Grovers skin disease Clinical Indicators: WBC-10.6, Neutrophils-9.6, CRP-59.0, Procalcitonin-0.08, Lactic acid-1.1 Treatment: IV Cefepime, IV Vanco, IV Unasyn, IV Solu-Medrol, IV fluids In your opinion, what is the most clinically appropriate diagnosis for this patient? Sepsis Other explanation of clinical findings Unable to determine (no explanation for clinical findings) SIRS of non-infectious origin MTDD
--- NOTE | 2019-10-27 08:13 | CDI ---
Documentation Clarification Form Date: 10/27/19 From: Suri Benson Phone: If you have a question about this query, please contact Naomie Cleveland, Steep Tender at [phone] between 8am and 5pm. Admit Date: 10/21/19 Discharge Date: 10/24/19 Patient Name: ANDREW DAVIS Visit Number: [id number] ATTENTION: The Clinical Documentation Specialists (CDI) and [facility] Coding Staff appreciate your assistance in clarifying documentation. Please respond to the clarification below the line at the bottom and electronically sign. The CDI & [facility] Coding staff will review the response and follow-up if needed. Please note: Queries are made part of the Legal Health Record. If you have any questions, please contact the author of this message via ITS. Dear Dr. So Dias, The diagnosis possible pneumonia was documented in the record, but is not noted in your subsequent documentation. History/Risk Factors: Melanoma of the face under treatment, hyponatremia, mucous plug, mitral regurgitation, Grovers skin disease Clinical Indicators: WBC-10.6, Neutrophils-9.6, CRP-59.0, Procalcitonin-0.08, Lactic acid-1.1 Treatment: IV Cefepime, IV Vanco, IV Unasyn, IV Solu-Medrol, IV fluids Please clarify if pneumonia was: Present/active/treated this admission Pneumonia ruled out Other, please specify Clinically unable to determine Pneumonia ruled out MTDD
--- NOTE | 2019-11-01 07:28 | CDI ---
Documentation Clarification Form Date: 11/01/19 From: Suri Benson Phone: If you have a question about this query, please contact Naomie Cleveland, Refuse Laborer at [phone] between 8am and 5pm. Admit Date: 10/21/19 Discharge Date: 10/24/19 Patient Name: ANDREW DAVIS Visit Number: [id number] ATTENTION: The Clinical Documentation Specialists (CDI) and [facility] Coding Staff appreciate your assistance in clarifying documentation. Please respond to the clarification below the line at the bottom and electronically sign. The CDI & [facility] Coding staff will review the response and follow-up if needed. Please note: Queries are made part of the Legal Health Record. If you have any questions, please contact the author of this message via ITS. Dear Dr. So Dias, The patients principal diagnosis has not been clearly identified and requires clarification. He presented with the following: fever no chills with persistent cough with clear sputum for past 6 weeks taking Azithromycin and mild SOB. History/Risk factors: hx melanoma of face, BPH, Maurilio's skin disease, hyponatremia, Type II AK, COVID test negative, OP CT shows mucous plugging in his lungs per Dr Duke, no hx of chronic lung disease Lab findings: WBC-10.6, Neutrophils-9.6, lactic acid-1.1, CRP-59.0, Procalcitonin-.08 Radiology findings: No evidence for acute pulmonary disease. Vital Signs: T-99.7, P-88, R-20, bp-95/52, O2-95 Treatment: IV Maxipime, IV Vancomycin, IV Unasyn Consults: Dr Duke-negative for acute infiltrate with concern for possible pneumonitis. Likely pathogen with a mucous plugging seen on the previous CT, usually associated with postobstructive pneumonitis. SIRS of non-infectious In your professional opinion, can you please clarify which diagnosis, after study, accounted for the patients presenting symptoms and was the reason chiefly responsible for the admission? Pneumonia. Possible Post Obstructive with mucus plug in th recent CT. MTDD
--- NOTE | 2019-11-02 23:28 | P.DS ---
Providers Date of admission: 10/21/19 17:10 Expected date of discharge: 10/24/19 Attending physician: So Dias Consults: 10/21/19 17:11 Consult Physician Routine Consulting Provider: Maddie Duke Consult Reason/Comments: sirs Do you want consulting provider notified?: Yes 10/21/19 21:13 Consult Physician Routine Consulting Provider: Siva Downing Consult Reason/Comments: Vtach Do you want consulting provider notified?: Yes, Notify in am 10/22/19 13:17 Consult Physician Routine Consulting Provider: Kenney Valverde Consult Reason/Comments: Chronic cough Do you want consulting provider notified?: Yes Primary care physician: Sohan Jorge Hospital Course: Discharge diagnosis New onset fever along with chronic cough x 6wk. Definitive etiology unknown at this time.Possible obstructive airway disease/asthma. postobstructive pneumonia. Elevated troponin level likely due to demand mismatch sinus tachycardia with right bundle branch block Elevated BNP level at 2660 without other evidence of heart failure Mild hypovolemic hyponatremia Melanoma currently being treated with study drugs. BPH DVT prophylaxis Hospital course Patient is a 79-year-old male with a known history of skin cancer/melanoma currently on clinical study drugs for the past 2 years, BPH, Glovers skin disease came to ER with complaints of persistent cough for the past 6 weeks. Cough with mainly clear sputum. Patient was seen by his PCP and Dr. Newby urologist and was given prednisone course as well as antibiotics in the form of azithromycin. Patient is also seen by his oncologist and since the patient is having cough mainly in the nighttime patient was also prescribed PPI for possible reflux. His symptoms never went away and last night he was having body aches and congestion and also became febrile. Patient had low-grade fever last night but this morning his fever was 101.7 as per his at bedside. Patient presented to ER with worsening symptoms.Patient denied any leg swelling. Laboratory data showed WBC 10.6, hemoglobin 13.4 and platelets 204 D-dimer 0.69 absolute lymphocyte count 0.4 Sodium 131, potassium 4.2, chloride 98 and BUN 21 creatinine 0.69 Troponin 0 0.066 and 0.037 proBNP 2660 UA negative for infection Vitals blood pressure 95/52 pulse 88 respiration 20 and temperature 99.7 and saturating at 95% on room air on admission. Chest x-ray showed no acute pulmonary disease. EKG showed normal sinus rhythm 10/22/2019 Patient is currently sitting in the bed comfortably. Still having cough. Patient has a defibrillator otherwise. Currently being continued on vancomycin. Patient had recent CT of the neck and chest and abdomen pelvis that was done on 10/11/2019 for staging of his disease. No evidence of any recurrence of malignancy. However, she will mucus blood in his lungs andlymphadenopathy was noted. Possible date of postobstructive pneumonitis is being considered. ID is on board.patient was also started on IV steroids.pulmonary was consulted. no complains of chest pain. No nausea vomiting or diarrhea. No abdominal pain. No headache or dizziness or lightheadedness. Patient was seen by cardiology due to possible nonsustained V. tach which is likely sinus tachycardia with a right bundle branch block secondary infection. 2-D echocardiography was ordered. 10/23/2019 Patient is currently lying in bed comfortably. Still having cough but improved comparatively. No complaints of chest pain. Patient is being continued on antibiotics at home for Unasyn. Continued on breathing treatments and IV steroids. Pulmonary recommends PFTs and outpatient follow-up for evaluation of obstructive airway disease. No complaints of nausea vomiting or abdominal pain. Anticipate discharge in the next 24 hours with more clinical improvement. 10/24/2019 Patient is currently lying in bed comfortably. No complaints of chest pain or shortness of breath. Cough did improve compared to yesterday. Patient will be continued on steroid tapering course and antibiotics for possible obstructive pneumonia. Patient had a bedside spirometry showed no evidence of obstructive disease. Pulmonary recommended to follow-up as an outpatient. Patient has been afebrile and no other acute overnight issues. Patient is being discharged home. Continue with antibiotics as per ID recommendations. PHYSICAL EXAMINATION: Patient is lying in the bed comfortably, no acute distress, awake alert and oriented.. HEENT: Normocephalic. Neck is supple. Pupils reactive. Nostrils clear. Oral cavity is moist. Ears reveal no drainage. Neck reveals no JVD, carotid bruits, or thyromegaly. CHEST EXAMINATION: Trachea is central. Symmetrical expansion. patient does have coarse breath sounds in the upper lobes and scattered rhonchi.. CARDIAC: Normal S1, S2 with no gallops. No murmurs ABDOMEN: Soft. Bowel sounds normal. No organomegaly. No abdominal bruits. Extremities: reveal no edema. No clubbing or cyanosis Neurologically awake, alert, oriented x3 with well-coordinated movements. No focal deficits noted Skin: No rash or skin lesions. Psychiatric: Coperative. Nonsuicidal Musculoskeletal: No joint swelling or deformity. Normal range of motion. Vital Signs Temp 97.7 F 10/24/19 01:00 Pulse 67 10/24/19 08:00 Resp 17 10/24/19 08:00 BP 140/78 10/24/19 01:00 Pulse Ox 96 10/24/19 01:00 Intake & Output 10/23/19 10/24/19 10/24/19 18:59 06:59 18:59 Intake Total 300 455 Output Total 400 Balance -400 300 455 Intake: Oral 300 455 Output: Urine 400 Other: Voiding Method Toilet Toilet Urinal Urinal # Voids 3 1 Patient Condition at Discharge: Fair Plan - Discharge Summary Discharge Rx Participant: No New Discharge Prescriptions: New RX: Metoprolol Tartrate [Lopressor] 25 mg PO BID #60 tab RX: predniSONE See Taper PO DIRECTED #30 tab Continue RX: Finasteride [Proscar] 5 mg PO DAILY RX: diphenhydrAMINE [Benadryl] 50 mg PO DAILY PRN PRN Reason: Itching RX: Tolterodine ER [Detrol LA] 4 mg PO HS RX: Triamcinolone 0.1% Cream [Kenalog 0.1% Cream] 1 applicatio TOPICAL BID PRN PRN Reason: Skin Irritation RX: Triamcinolone 0.025% Cream [Kenalog 0.025% Cream] 1 applic TOPICAL BID PRN PRN Reason: Skin Irritation RX: Calcipotriene [Dovonex] 1 applic TOPICAL BID PRN PRN Reason: Rash RX: Halobetasol Propionate [Ultravate] 1 applic TOPICAL BID PRN PRN Reason: Rash Amlactin Lotion 1 applicate TOPICAL DAILY RX: Acetaminophen [Tylenol Extra Strength] 1,000 mg PO Q8H PRN PRN Reason: Pain Or Fever > 100.5 RX: Loratadine [Claritin] 10 mg PO DAILY PRN PRN Reason: Allergy Symptoms & Congestion RX: Dextromethorphan Polistirex [Delsym] 60 mg PO Q12HR PRN PRN Reason: cough & congestion RX: Tretinoin [Tretinoin 0.1%] 1 applic TOPICAL BID RX: Albuterol Inhaler [Ventolin Hfa Inhaler] 1 puff INHALATION RT-Q6H PRN PRN Reason: Shortness Of Breath Lidocaine-Hc 3-0.5% 1 applic TOPICAL DAILY PRN PRN Reason: ITCHY/RASH SKIN Discharge Medication List RX: Finasteride [Proscar] 5 mg PO DAILY 06/20/14 [History] RX: diphenhydrAMINE [Benadryl] 50 mg PO DAILY PRN 03/05/15 [History] Amlactin Lotion 1 applicate TOPICAL DAILY 03/11/19 [History] RX: Acetaminophen [Tylenol Extra Strength] 1,000 mg PO Q8H PRN 03/11/19 [History] RX: Calcipotriene [Dovonex] 1 applic TOPICAL BID PRN 03/11/19 [History] RX: Halobetasol Propionate [Ultravate] 1 applic TOPICAL BID PRN 03/11/19 [History] RX: Tolterodine ER [Detrol LA] 4 mg PO HS 03/11/19 [History] RX: Triamcinolone 0.025% Cream [Kenalog 0.025% Cream] 1 applic TOPICAL BID PRN 03/11/19 [History] RX: Triamcinolone 0.1% Cream [Kenalog 0.1% Cream] 1 applicatio TOPICAL BID PRN 03/11/19 [History] Lidocaine-Hc 3-0.5% 1 applic TOPICAL DAILY PRN 10/21/19 [History] RX: Albuterol Inhaler [Ventolin Hfa Inhaler] 1 puff INHALATION RT-Q6H PRN 10/21/19 [History] RX: Dextromethorphan Polistirex [Delsym] 60 mg PO Q12HR PRN 10/21/19 [History] RX: Loratadine [Claritin] 10 mg PO DAILY PRN 10/21/19 [History] RX: Tretinoin [Tretinoin 0.1%] 1 applic TOPICAL BID 10/21/19 [History] RX: Metoprolol Tartrate [Lopressor] 25 mg PO BID #60 tab 10/24/19 [Rx] RX: predniSONE See Taper PO DIRECTED #30 tab 10/24/19 [Rx] Follow up Appointment(s)/Referral(s): Sohan Jorge MD [Primary Care Provider] - 10/30/19 1:20 pm Kenney Valverde DO [Doctor of Osteopathic Medicine] - 11/07/19 2:00 pm Patient Instructions/Handouts: Pneumonia (DC), Acute Cough (GEN) Discharge Disposition: HOME SELF-CARE
== END 2019-10-24 14:28 | disposition home or self-care (01) | DRG 193 ==
LOC: EC 13:55 → 4SSUR 17:10
PROVIDERS: ADMIT Internal Medicine; ATTEND Internal Medicine
DX: J18.9 Pneumonia, unspecified organism (principal); I21.A1 Myocardial infarction type 2; T17.890A Other foreign object in other parts of respiratory tract causing asphyxiation, initial encounter; E87.1 Hypo-osmolality and hyponatremia; R65.10 Systemic inflammatory response syndrome (SIRS) of non-infectious origin without acute organ dysfunction; C43.30 Malignant melanoma of unspecified part of face; E86.1 Hypovolemia; Z20.828 Contact with and (suspected) exposure to other viral communicable diseases; R09.82 Postnasal drip; R00.0 Tachycardia, unspecified; I34.0 Nonrheumatic mitral (valve) insufficiency; L11.1 Transient acantholytic dermatosis [Grover]; N40.0 Benign prostatic hyperplasia without lower urinary tract symptoms; I45.10 Unspecified right bundle-branch block; R59.1 Generalized enlarged lymph nodes; H91.90 Unspecified hearing loss, unspecified ear; Z00.6 Encounter for examination for normal comparison and control in clinical research program; Z79.899 Other long term (current) drug therapy; Z97.4 Presence of external hearing-aid; Z86.69 Personal history of other diseases of the nervous system and sense organs; Z87.39 Personal history of other diseases of the musculoskeletal system and connective tissue; Z95.810 Presence of automatic (implantable) cardiac defibrillator; Z98.52 Vasectomy status; Z98.890 Other specified postprocedural states; Z91.048 Other nonmedicinal substance allergy status; Z80.0 Family history of malignant neoplasm of digestive organs; Z82.49 Family history of ischemic heart disease and other diseases of the circulatory system; Z83.79 Family history of other diseases of the digestive system
CPT/HCPCS: 36415; 71046; 80048; 80053; 81001; 82550; 83605; 83735; 83880; 84145; 84443; 84484; 85025; 85379; 85610; 85730; 86140; 87040; 87070; 87205; 93005; 93306; 94150; 96374; 99285

== ENCOUNTER → 2021-01-17 | Outpatient (CLI) | payer MEDICARE ==
--- NOTE | 2021-01-17 15:24 | US ---
EXAMINATION TYPE: US thyroid st tissue head/neck DATE OF EXAM: 01/17/2021 COMPARISON: NONE CLINICAL HISTORY: E04.[address] showed nodule, not on thyroid meds GLAND SIZE: Right Lobe: 4.5 x 2.0 x 2.2 cm Overall Parenchyma: homogenous Left Lobe: 3.4 x 1.1 x 1.9 cm Overall Parenchyma: homogeneous Isthmus Thickness: 0.2 cm NODULES RIGHT: # of nodules measured on right: 1 1. 2.0 X 1.8 x 1.2 cm, mid cystic or almost completely cystic, nodule, which is wider than tall, wi th smooth margins, without echogenic foci. 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 IMPRESSION: Cystic nodule right thyroid lobe. No additional nodules seen. 2017 ACR TI-RADS LEVEL: *Highest TI-RADS level nodule reported
== END | disposition home or self-care (01) ==
LOC: RADUSWWP 14:50
PROVIDERS: ATTEND Family Medicine
DX: E04.1 Nontoxic single thyroid nodule (principal)
CPT/HCPCS: 76536

== ENCOUNTER 2021-02-09 12:34 | Day surgery (SDC) | payer MEDICARE ==
[2021-02-09 14:48] VITALS: TEMP 98.1
[2021-02-09 14:49] VITALS: RESP 16
[2021-02-09 14:50] VITALS: BP 127/72; PULSE 78
--- NOTE | 2021-02-09 16:42 | US ---
EXAMINATION TYPE: US FNA first lesion DATE OF EXAM: 02/09/2021 COMPARISON: Thyroid ultrasound 01/17/2021 HISTORY: Thyroid nodule. Maximal barrier technique was utilized. After informed consent, skin overlying the right lobe cystic thyroid nodule was localized with ultrasound and the overlying skin prepped and draped. Ultrasound w as utilized using sterile technique. Lidocaine was used for local anesthesia. Five passes with a 25- gauge needle were made into the nodule and aspirated specimen was submitted to cytology. Following t he procedure hemostasis achieved. No immediate complication. The patient discharged in stable condi tion. IMPRESSION: STATUS POST ULTRASOUND GUIDED FINE NEEDLE ASPIRATION OF THYROID NODULE, PATHOLOGY IS PEND ING. THIS PROCEDURE WAS PERFORMED BY THE UNDERSIGNED.
== END 2021-02-09 14:40 | disposition home or self-care (01) ==
LOC: RADPROMAIN 12:34
PROVIDERS: ATTEND Otolaryngology
DX: E04.1 Nontoxic single thyroid nodule (principal)
CPT/HCPCS: 10005; 88173; 88305

== ENCOUNTER → 2022-02-13 | Outpatient (CLI) | payer MEDICARE ==
--- NOTE | 2022-02-13 12:21 | US ---
EXAMINATION TYPE: US thyroid st tissue head/neck DATE OF EXAM: 02/13/2022 COMPARISON: Us 2021 CLINICAL HISTORY: E04.1 NONTOXIC SINGLE THYROID NODULE. Right thyroid nodule. GLAND SIZE: Right Lobe: 5.6 x 1.9 x 2.0 cm Overall Parenchyma: homogenous Left Lobe: 4.5 x 1.4 x 1.5 cm Overall Parenchyma: homogeneous Isthmus Thickness: 0.19 cm NODULES RIGHT: # of nodules measured on right: 2 1. 2.3 X 2.4 x 1.4 cm, lower medial, mixed cystic and solid nodule, which is wider than tall, with smooth margins, without echogenic foci. Prior size: 2.4 x 1.5 x 2.3 cm 2. 0.6 x 0.5 x 0.2 cm, upper mid, mixed cystic and solid nodule, which is wider than tall, with sm ooth margins, without echogenic foci. Prior size: No prior LEFT: # of nodules measured on left: 1 1. 0.7 X 0.6 x 0.3 cm, lower lateral, mixed cystic and solid, hypoechoic nodule, which is wider jessica n tall, with smooth margins, without echogenic foci. Prior size: No prior ISTHMUS: # of nodules measured in the isthmus: 0 Bilateral neck scanned, no evidence of lymphadenopathy. IMPRESSION: Nonspecific nodularity.
== END | disposition home or self-care (01) ==
LOC: RADUSWWP 09:59
PROVIDERS: ATTEND Otolaryngology
DX: E04.1 Nontoxic single thyroid nodule (principal)
CPT/HCPCS: 76536

== ENCOUNTER → 2022-07-26 | Outpatient (CLI) | payer MEDICARE ==
--- NOTE | 2022-07-26 15:57 | US ---
EXAMINATION TYPE: US thyroid st tissue head/neck DATE OF EXAM: 07/26/2022 COMPARISON: 02/13/2022 CLINICAL INDICATION: Male, 82 years old with history of E04.1 NONTOXIC SINGLE THYROID NODULE; f/u exa m GLAND SIZE: Right Lobe: 4.9 x 2.0 x 2.3 cm Overall Parenchyma: heterogenous Left Lobe: 3.8 x 1.0 x 1.7 cm Overall Parenchyma: homogeneous Isthmus Thickness: 0.4 cm NODULES RIGHT: # of nodules measured on right: 1 1. 2.1 X 1.7 x 1.6 cm, lower, cystic or almost completely cystic, anechoic nodule, which is wider t estes tall, with smooth margins, without echogenic foci. Prior size: 2.3 x 2.4 x 1.4 cm LEFT: # of nodules measured on left: 0 ISTHMUS: # of nodules measured in the isthmus: 0 Bilateral neck scanned, no evidence of lymphadenopathy. IMPRESSION: A benign solitary cyst in the right lobe measuring 2.1 cm versus 2.4 cm, previously.
== END | disposition home or self-care (01) ==
LOC: RADUSWWP 11:58
PROVIDERS: ATTEND Otolaryngology
DX: E04.1 Nontoxic single thyroid nodule (principal)
CPT/HCPCS: 76536

== ENCOUNTER → 2023-02-26 | Outpatient (CLI) | payer MEDICARE ==
--- NOTE | 2023-02-26 12:43 | US ---
EXAMINATION TYPE: US thyroid st tissue head/neck DATE OF EXAM: 02/26/2023 COMPARISON: US 2022 CLINICAL INDICATION: Male, 82 years old with history of E04.1 THYROID NODULE; GLAND SIZE: Right Lobe: 5.0 x 1.7 x 1.5 cm Overall Parenchyma: homogeneous Left Lobe: 3.7 x 1.5 x 1.3 cm Overall Parenchyma: homogeneous Isthmus Thickness: 0.2 cm NODULES Multiple bilateral nodules with largest described below RIGHT: # of nodules measured on right: 1 1. 1.5 X 1.3 x 1.5 cm, lower mid, Prior size: 2.1 x 1.7 x 1.5 cm TIRADS Score: 0 TIRADS Category 1: Benign Composition: Cystic or almost completely cystic (0 points). Recommendation: No FNA LEFT: # of nodules measured on left: 0 ISTHMUS: # of nodules measured in the isthmus: 0 Bilateral neck scanned, no evidence of lymphadenopathy. IMPRESSION: Simple appearing right thyroid gland cyst.
== END | disposition home or self-care (01) ==
LOC: RADUSWWP 12:08
PROVIDERS: ATTEND Otolaryngology
DX: E04.1 Nontoxic single thyroid nodule (principal)
CPT/HCPCS: 76536

== ENCOUNTER → 2023-04-13 | Outpatient (CLI) | payer MEDICARE ==
--- NOTE | 2023-04-13 17:13 | MR ---
EXAMINATION TYPE: MR brain wo/w con DATE OF EXAM: 04/13/2023 COMPARISON: NONE HISTORY: 82-year-old male R41.89 OTH SYMPTOMS AND SIGNS W COGNITIVE FUNCTION. TECHNOLOGIST NOTES: Hx of Ca TECHNIQUE: Multiplanar, multisequence images of the brain and brainstem were acquired before and aft er administration of 7ml mL IV Gadavist. Diffusion weighted imaging is performed. FINDINGS: No evidence for acute infarction, hemorrhage, mass, mass effect, midline shift, herniation, effacemen t of basal cisterns, or extra-axial fluid collection. The ventricles and sulci are age-appropriate. Slight ventricular prominence likely secondary to centr al cerebral atrophy. Major intracranial flow voids are intact. T2/FLAIR weighted sequences show moderate patchy and scattered right signal change within the periven tricular and deep white matter regions of both cerebral hemispheres. Midline structures demonstrate normal morphology. Slight 2 mm of cerebellar tonsillar ectopia. Otherw ise, the craniocervical junction is normal. Post contrast images demonstrate no evidence of pathologic enhancement. Dural venous sinuses are pat ent. Moderate mucosal thickening ethmoid air cells. Globes are intact. IMPRESSION: 1. No acute intracranial abnormality seen. No enhancing intracranial lesions. 2. Mild central cerebral atrophy. Moderate patchy and confluent burden of chronic small vessel ischem ic disease. 3. Moderate chronic ethmoid sinus disease.
== END | disposition home or self-care (01) ==
LOC: RADMRIMAIN 11:25
PROVIDERS: ATTEND Psychiatry & Neurology Neurology
DX: G31.9 Degenerative disease of nervous system, unspecified (principal); R41.89 Other symptoms and signs involving cognitive functions and awareness; I67.82 Cerebral ischemia; J32.2 Chronic ethmoidal sinusitis
CPT/HCPCS: 70553; A9585

== ENCOUNTER → 2024-02-11 | Outpatient (CLI) | payer MEDICARE ==
--- NOTE | 2024-02-11 16:25 | US ---
EXAMINATION TYPE: US thyroid st tissue head/neck DATE OF EXAM: 02/11/2024 COMPARISON: 02/26/2023 CLINICAL INDICATION: Male, 83 years old with history of E03.9 HYPOTHYROIDISM, UNSPECIFIED; Hypothyroi dism TECHNIQUE: Grayscale and color Doppler imaging of the thyroid gland. FINDINGS: GLAND SIZE: Right Lobe: 5.0 x 1.8 x 1.8 cm Overall Parenchyma: homogeneous Left Lobe: 4.3 x 1.6 x 1.4 cm Overall Parenchyma: homogeneous Isthmus Thickness: .2 cm NODULES RIGHT: # of nodules measured on right: 1 1. 1.6 X 1.0 x 1.4 cm, lower medial, Prior size: 1.5 x 1.3 x 1.5 cm TIRADS Score: 0 TIRADS Category 1: Benign Composition: Cystic or almost completely cystic (0 points). Recommendation: No FNA LEFT: # of nodules measured on left: 0 ISTHMUS: # of nodules measured in the isthmus: 0 Bilateral neck scanned, no evidence of lymphadenopathy. IMPRESSION: Benign-appearing right thyroid cyst. No suspicious nodules. [facility], , 02/11/2024 4:23 PM
== END | disposition home or self-care (01) ==
LOC: RADUSWWP 14:40
PROVIDERS: ATTEND Family Medicine
DX: E03.9 Hypothyroidism, unspecified (principal); E04.1 Nontoxic single thyroid nodule
CPT/HCPCS: 76536